=== PATIENT | female | born 1950 | race Caucasian/White ===

== ENCOUNTER 2022-06-23 15:46 | Emergency (ER) | payer MEDICARE, SELFPAY ==
--- NOTE | ~2022-06-23 | CT_ITS ---
EXAMINATION: CT HEAD WITHOUT CONTRAST CT FACE WITHOUT CONTRAST CT CERVICAL SPINE WITHOUT CONTRAST CLINICAL INFORMATION: Headache and neck pain status post fall. COMPARISON: CT head 05/14/2019. MR brain 05/30/2019. TECHNIQUE: Able Seaman images were obtained. CT imaging of the head, face, and cervical spine was performed without contrast. Data was reformatted into multiplanar images at the acquisition workstation. This CT examination was performed using dose optimization techniques as appropriate, including one or more of the following: Automated exposure control, iterative reconstruction, and adjustment of technique factors (mA and/or kVp) according to patient size (this includes techniques or standardized protocols for targeted exams where dose is matched to indication/reason for exam). Fleischner Society criteria for the followup of incidental pulmonary nodules was implemented if appropriate. DLP: 1207 mGy-cm. FINDINGS: Head: There is no acute intracranial hemorrhage or abnormal extra-axial collection. No intracranial mass effect or midline shift. Lateral and third ventricles are proportionate to the subarachnoid spaces. No hydrocephalus. Pulido-white matter differentiation is grossly preserved and there is no evidence of acute territorial infarct. The calvarium and skull base are intact. Mastoid air cells and middle ear cavities are well aerated. Face: There is an acute comminuted fracture of the nasal bones. Zygomatic arches and pterygoid processes are intact. No acute mandibular fracture. 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 Cervical spine: Alignment is normal. Vertebral heights are preserved. No acute cervical spine fracture. No abnormal prevertebral soft tissue swelling. Canal patency is not well assessed on this examination due to inherent limitations of CT without intrathecal contrast. Grossly no evidence of canal compromise. There is pleural-parenchymal scarring at the apices of both lungs. Soft tissues of the neck are unremarkable. CT/CT cervical spine wo IV con IMPRESSION: Head: No acute intracranial hemorrhage. Face: There is an acute comminuted fracture of the nasal bones. No acute facial fracture. Cervical spine: No acute fracture and no posttraumatic spinal subluxation.
--- NOTE | ~2022-06-23 | XR_ITS ---
EXAMINATION: XR KNEE, RIGHT CLINICAL INFORMATION: Right knee pain after trauma COMPARISON: None available. TECHNIQUE: 6 views of the right knee. FINDINGS: Bones and soft tissues are normal. No fracture. A trace joint effusion may be present.. Alignment is anatomic. Joint spaces are well maintained. No abnormal soft tissue calcification. XR/XR knee RT 4V IMPRESSION: No evidence of an acute osseous injury. A trace joint effusion may be present.
--- NOTE | ~2022-06-23 | CT_ITS ---
EXAMINATION: CT HEAD WITHOUT CONTRAST CT FACE WITHOUT CONTRAST CT CERVICAL SPINE WITHOUT CONTRAST CLINICAL INFORMATION: Headache and neck pain status post fall. COMPARISON: CT head 05/14/2019. MR brain 05/30/2019. TECHNIQUE: Marine Engine Mechanic images were obtained. CT imaging of the head, face, and cervical spine was performed without contrast. Data was reformatted into multiplanar images at the acquisition workstation. This CT examination was performed using dose optimization techniques as appropriate, including one or more of the following: Automated exposure control, iterative reconstruction, and adjustment of technique factors (mA and/or kVp) according to patient size (this includes techniques or standardized protocols for targeted exams where dose is matched to indication/reason for exam). Fleischner Society criteria for the followup of incidental pulmonary nodules was implemented if appropriate. DLP: 1207 mGy-cm. FINDINGS: Head: There is no acute intracranial hemorrhage or abnormal extra-axial collection. No intracranial mass effect or midline shift. Lateral and third ventricles are proportionate to the subarachnoid spaces. No hydrocephalus. Pulido-white matter differentiation is grossly preserved and there is no evidence of acute territorial infarct. The calvarium and skull base are intact. Mastoid air cells and middle ear cavities are well aerated. Face: There is an acute comminuted fracture of the nasal bones. Zygomatic arches and pterygoid processes are intact. No acute mandibular fracture. 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 Cervical spine: Alignment is normal. Vertebral heights are preserved. No acute cervical spine fracture. No abnormal prevertebral soft tissue swelling. Canal patency is not well assessed on this examination due to inherent limitations of CT without intrathecal contrast. Grossly no evidence of canal compromise. There is pleural-parenchymal scarring at the apices of both lungs. Soft tissues of the neck are unremarkable. CT/CT facial bones wo IV con IMPRESSION: Head: No acute intracranial hemorrhage. Face: There is an acute comminuted fracture of the nasal bones. No acute facial fracture. Cervical spine: No acute fracture and no posttraumatic spinal subluxation.
--- NOTE | ~2022-06-23 | CT_ITS ---
EXAMINATION: CT HEAD WITHOUT CONTRAST CT FACE WITHOUT CONTRAST CT CERVICAL SPINE WITHOUT CONTRAST CLINICAL INFORMATION: Headache and neck pain status post fall. COMPARISON: CT head 05/14/2019. MR brain 05/30/2019. TECHNIQUE: Aircraft Electronics Technical Officer images were obtained. CT imaging of the head, face, and cervical spine was performed without contrast. Data was reformatted into multiplanar images at the acquisition workstation. This CT examination was performed using dose optimization techniques as appropriate, including one or more of the following: Automated exposure control, iterative reconstruction, and adjustment of technique factors (mA and/or kVp) according to patient size (this includes techniques or standardized protocols for targeted exams where dose is matched to indication/reason for exam). Fleischner Society criteria for the followup of incidental pulmonary nodules was implemented if appropriate. DLP: 1207 mGy-cm. FINDINGS: Head: There is no acute intracranial hemorrhage or abnormal extra-axial collection. No intracranial mass effect or midline shift. Lateral and third ventricles are proportionate to the subarachnoid spaces. No hydrocephalus. Pulido-white matter differentiation is grossly preserved and there is no evidence of acute territorial infarct. The calvarium and skull base are intact. Mastoid air cells and middle ear cavities are well aerated. Face: There is an acute comminuted fracture of the nasal bones. Zygomatic arches and pterygoid processes are intact. No acute mandibular fracture. 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 Cervical spine: Alignment is normal. Vertebral heights are preserved. No acute cervical spine fracture. No abnormal prevertebral soft tissue swelling. Canal patency is not well assessed on this examination due to inherent limitations of CT without intrathecal contrast. Grossly no evidence of canal compromise. There is pleural-parenchymal scarring at the apices of both lungs. Soft tissues of the neck are unremarkable. CT/CT head/brain wo IV con IMPRESSION: Head: No acute intracranial hemorrhage. Face: There is an acute comminuted fracture of the nasal bones. No acute facial fracture. Cervical spine: No acute fracture and no posttraumatic spinal subluxation.
--- NOTE | ~2022-06-23 | XR_ITS ---
EXAMINATION: XR CHEST CLINICAL INFORMATION: Fall with chest trauma COMPARISON: None available. TECHNIQUE: Frontal view of the chest was obtained. FINDINGS: No significant abnormality is noted involving the heart, lungs, mediastinum, bony thorax or soft tissues. No displaced rib fractures are seen. XR/XR chest 1V IMPRESSION: Unremarkable examination.
[2022-06-23 16:09] VITALS: BP 149/63; PULSE 66; RESP 17; TEMP 36.9; O2SAT 98; BMI 21.6
--- NOTE | 2022-06-23 16:09 | ED.FALL ---
HPI - Fall General Chief Complaint: Fall <KANA Donohue - Last Filed: 06/23/22 16:15> Stated Complaint: fell/broke nose? <KANA Donohue - Last Filed: 06/23/22 16:15> Time Seen by Provider: 06/23/22 19:59 <KANA Donohue - Last Filed: 06/23/22 16:15> Source: patient and family <Viki Kam NP - Last Filed: 06/23/22 21:28> Mode of arrival: ambulatory <Viki Kam NP - Last Filed: 06/23/22 21:28> Limitations: no limitations <Viki Kam NP - Last Filed: 06/23/22 21:28> History of Present Illness HPI Narrative: 71-year-old female presents for injury sustained from a mechanical fall. Patient was taking her nightly walk, slipped on some ice last night around 19:00. Landed on her right knee and her face. She did not lose consciousness, and did not seek medical attention last night because she did not think her injuries were too serious. She has bilateral bruising to the eyes, swelling to the nose, and right knee pain. She does not report any prodromal symptoms prior to the fall. <Viki Kam NP - Last Filed: 06/23/22 21:28> MD complaint: fall <Viki Kam NP - Last Filed: 06/23/22 21:28> Onset (ago): day(s) (1) <Viki Kam NP - Last Filed: 06/23/22 21:28> Fall from: standing <Viki Kam NP - Last Filed: 06/23/22 21:28> Fall witnessed: no <Viki Kam NP - Last Filed: 06/23/22 21:28> Place fall occurred: street <Viki Kam NP - Last Filed: 06/23/22 21:28> Loss of consciousness: none <Viki Kam NP - Last Filed: 06/23/22 21:28> Length of LOC: second(s) <Viki Kam NP - Last Filed: 06/23/22 21:28> Prolonged down time: no <Viki Kam NP - Last Filed: 06/23/22 21:28> Symptoms prior to fall: none <Viki Kam NP - Last Filed: 06/23/22 21:28> Context: tripped/slipped <Viki Kam NP - Last Filed: 06/23/22 21:28> Location of injury: head and face <Viki Kam NP - Last Filed: 06/23/22 21:28> Location of injury - extremities: right: knee <Viki Kam NP - Last Filed: 06/23/22 21:28> Severity: moderate <Viki Kam NP - Last Filed: 06/23/22 21:28> Severity scale (1-10): 7 <Viki Kam NP - Last Filed: 06/23/22 21:28> Quality: aching <Viki Kam NP - Last Filed: 06/23/22 21:28> Associated symptoms (after fall): headache <Viki Kam NP - Last Filed: 06/23/22 21:28> Related Data Home Medications: Previous Rx's Medication Instructions Recorded cefuroxime axetil 500 mg tablet 500 mg PO Q12H 5 days #10 tabs 06/23/22 <KANA Donohue - Last Filed: 06/23/22 16:15> Allergies/Adverse Reactions: Allergies Allergy/AdvReac Type Severity Reaction Status Date / Time No Known Allergies Allergy Unverified 12/22/19 19:49 [No Known Allergies*] <KANA Donohue - Last Filed: 06/23/22 16:15> Review of Systems Review of Systems: Constitutional: No Fever, No Chills, mild confusion with short-term memory forgetfulness per baseline. ENT/Mouth: Positive nasal bone pain and swelling. No Ear Pain, No Hoarseness, No sore throat Eyes: Positive bilateral Eye Pain bilateral periorbital ecchymosis, No Swelling, No Redness, No Foreign Body Cardiovascular: No Chest Pain, No SOB Respiratory: No Cough, No Dyspnea Gastrointestinal: No Nausea, No Vomiting, No Diarrhea, No abdominal Pain Genitourinary: No Dysuria, No Hematuria Musculoskeletal: positive right knee pain, No Myalgias, No Joint Swelling Skin: No Skin lacerations, No rash Neuro: No Weakness, No Numbness, No Paresthesias, No Loss of Consciousness, No Dizziness, No Headache <Viki Kam NP - Last Filed: 06/23/22 21:28> Yes all other systems are reviewed and are negative <Viki Kam NP - Last Filed: 06/23/22 21:28> [facility] Past Medical History Attestation statement: The following information was validated with the patient. <Viki Kam NP - Last Filed: 06/23/22 21:28> Source: old records reviewed <Viki Kam NP - Last Filed: 06/23/22 21:28> Social History Social History: Social History Advance Directives: No Advance Directives Information Provided: No <KANA Donohue - Last Filed: 06/23/22 16:15> Physical Exam Vital Signs: Vital Signs: Last Vital Signs Temp 98.4 F 06/23/22 16:09 Pulse 66 06/23/22 16:09 Resp 17 06/23/22 16:09 BP 149/63 H 06/23/22 16:09 Pulse Ox 98 06/23/22 16:09 O2 Del Method 06/23/22 16:09 BMI result Body Mass Index 21.6 <KANA Donohue - Last Filed: 06/23/22 16:15> Vital Signs: Last Vital Signs Temp 98.4 F 06/23/22 16:09 Pulse 66 06/23/22 16:09 Resp 17 06/23/22 16:09 BP 149/63 H 06/23/22 16:09 Pulse Ox 98 06/23/22 16:09 O2 Del Method 06/23/22 16:09 BMI result Body Mass Index 21.6 <Viki Kam NP - Last Filed: 06/23/22 21:28> Appearance: Alert. Oriented X3. No acute distress. Eyes: Pupils equal, round and reactive to light. Bilateral periorbital ecchymosis. ENT: Pharynx normal. Swelling to the bridge of the nose with ecchymosis, disfiguration consistent with fracture. Neck: Normal inspection. Neck supple. No vertebral tenderness or step-offs. Full range of motion. No axial loading tenderness. CVS: Normal heart rate and rhythm. Pulses normal. Respiratory: No respiratory distress. Breath sounds normal. Abdomen: Soft and nontender. Skin: Skin warm and dry. Normal skin color. Normal skin turgor. Extremities: No lower extremity edema. Gait well balance well coordinated. Neuro: No motor deficit. No sensory deficit. Cranial nerves 2-12 intact. <Viki Kam ARCHITECTURAL DRAFTSMAN - Last Filed: 06/23/22 21:28> NIH Stroke Scale Internal: Initial- Upon Arrival <Viki Kam ARCHITECTURAL DRAFTSMAN - Last Filed: 06/23/22 21:28> Level of Consciousness: Alert <Viki Kma ARCHITECTURAL DRAFTSMAN - Last Filed: 06/23/22 21:28> Level of Consciousness Questions: Answers both questions correctly <Viki Kam ARCHITECTURAL DRAFTSMAN - Last Filed: 06/23/22 21:28> Level of Consciousness Commands: Performs both tasks correctly <Viki Kam ARCHITECTURAL DRAFTSMAN - Last Filed: 06/23/22 21:28> Best Gaze: Normal <Viki Kam ARCHITECTURAL DRAFTSMAN - Last Filed: 06/23/22 21:28> Visual: No visual loss <Viki Kam ARCHITECTURAL DRAFTSMAN - Last Filed: 06/23/22 21:28> Facial Palsy: Normal <Viki Kam ARCHITECTURAL DRAFTSMAN - Last Filed: 06/23/22 21:28> Motor Arm (Right): No drift <Viki Kam ARCHITECTURAL DRAFTSMAN - Last Filed: 06/23/22 21:28> Motor Arm (Left): No drift <Candmarlin Eddy, ARCHITECTURAL DRAFTSMAN - Last Filed: 06/23/22 21:28> Motor Leg (Right): No drift <Viki Eddy, ARCHITECTURAL DRAFTSMAN - Last Filed: 06/23/22 21:28> Motor Leg (Left): No drift <Viki Kam ARCHITECTURAL DRAFTSMAN - Last Filed: 06/23/22 21:28> Limb Ataxia: Absent <Viki Kam ARCHITECTURAL DRAFTSMAN - Last Filed: 06/23/22 21:28> Sensory: Normal <Viki Kam ARCHITECTURAL DRAFTSMAN - Last Filed: 06/23/22 21:28> Best Language: No aphasia <Viki Kam NP - Last Filed: 06/23/22 21:28> Dysarthia: Normal <Viki Kam NP - Last Filed: 06/23/22 21:28> Extinction and Inattention: No abnormality <Viki Kam NP - Last Filed: 06/23/22 21:28> Score: 0 <Viki Kam NP - Last Filed: 06/23/22 21:28> Course Course Course Narrative: This is an RME: Additional HPI, ROS, PE not included below will be deferred to primary provider. 71-year-old female presents status post fall last night after she was taking a walk patient reports she fell, unsure how, she hit her right knee in her face. Reporting nose pain, right knee pain. No loss of consciousness, not on blood thinners. Was able to get up from the ground by herself. Denies headache, chest pain, shortness of breath, nausea, vomiting, vision changes, dizziness, weakness. No preceding symptoms to fall per patient, however, poor historian GCS 15. NIH stroke scale 0. Physical exam with bilateral periorbital ecchymosis , swelling to nose and some ecchymosis overlying nose slight deformity. Will order CT scan of head, facial bones, cervical spine. Also order chest x-ray and x-ray of right knee. Basic labs will be ordered. <KANA Donohue - Last Filed: 06/23/22 16:15> This is an RME: Additional HPI, ROS, PE not included below will be deferred to primary provider. 71-year-old female presents status post fall last night after she was taking a walk patient reports she fell, unsure how, she hit her right knee in her face. Reporting nose pain, right knee pain. No loss of consciousness, not on blood thinners. Was able to get up from the ground by herself. Denies headache, chest pain, shortness of breath, nausea, vomiting, vision changes, dizziness, weakness. No preceding symptoms to fall per patient, however, poor historian GCS 15. NIH stroke scale 0. Physical exam with bilateral periorbital ecchymosis , swelling to nose and some ecchymosis overlying nose slight deformity. Will order CT scan of head, facial bones, cervical spine. Also order chest x-ray and x-ray of right knee. Basic labs will be ordered. 20:00 71-year-old female presents for injury sustained from a fall that occurred around 19:00 last night. Patient stated that she slipped on some ice, landed on her right knee and hit her face onto the pavement. Provider in triage ordered lab values, EKG, CT scan of head facial bones cervical spine, x-rays of the knee and chest. CT scan of head cervical spine negative for acute findings, CT scan of facial bones indicates bilateral nasal bone fractures. Knee x-ray indicates effusion, too small to be drained, chest x-ray is negative for findings requiring emergent intervention. Physical exam indicates bilateral periorbital ecchymosis with swelling to the bridge of the nose with deformity, consistent with CT scan findings of nasal bone fractures. Patient is ambulatory, even steady gait, GCS 15, NIH stroke scale 0. Full range of motion to all extremities. Strength 5/5. Lab values indicate an elevated troponin, will repeat 2nd. EKG is normal sinus, urinalysis shows a small amount of leukocyte esterase, and white blood cell count. Patient's daughter is at bedside, who states that patient has short-term memory problems per baseline. Daughter does not report any significant changes in this patient's behavior or mental status. 21:05 repeat troponin 17.2, low likelihood of ACS at this time. Will treat empirically for UTI with cefuroxime for 5 days. Patient and patient's family does understand that patient needs close follow-up with primary care physician for post concussive protocol. Patient verbalized understanding of discharge instructions. Verbalized understandings of signs and symptoms indicating need for emergent intervention. <Viki Kam NP - Last Filed: 06/23/22 21:28> Medications Administered Generic Name Dose Route Start Last Admin Trade Name Freq PRN Reason Stop Dose Admin Sodium Chloride 1,000 mls @ 999 mls/hr 06/23/22 20:15 06/23/22 20:23 Ns IVCONT 06/23/22 21:15 999 mls/hr .Q1H1M NEKCHI Administration <KANA Donohue - Last Filed: 06/23/22 16:15> Medications Administered Generic Name Dose Route Start Last Admin Trade Name Freq PRN Reason Stop Dose Admin Sodium Chloride 1,000 mls @ 999 mls/hr 06/23/22 20:15 06/23/22 20:23 Ns IVCONT 06/23/22 21:15 999 mls/hr .Q1H1M NKECHI Administration <Viki Kam NP - Last Filed: 06/23/22 21:28> Medical Decision Making Differential Diagnosis Differential Diagnoses: The differential diagnosis associated with the presentation includes <Viki Kam NP - Last Filed: 06/23/22 21:28> CVA, subdural, cervical spine fracture, facial bone fracture, effusion, ACS, dislocation, tendon injury <Viki Kam NP - Last Filed: 06/23/22 21:28> Admission/Observation Consideration of admission/observation: Escalation of care including admission/observation considered <Viki Kam NP - Last Filed: 06/23/22 21:28> If any abnormal lab values, or acute findings and CT scan or x-rays patient will be considered for admission <Viki Kam NP - Last Filed: 06/23/22 21:28> Lab Data MDM Lab Attestation statement: I reviewed the patient's lab results. <Viki Kam NP - Last Filed: 06/23/22 21:28> Result Diagrams: 06/23/22 17:10 06/23/22 17:10 <KANA Donohue - Last Filed: 06/23/22 16:15> Labs: Lab Results 06/23/22 06/23/22 06/23/22 Range/Units 17:07 17:10 17:10 WBC 6.6 (4.8-10.8) X10*3/uL RBC 3.88 L (4.20-5.50) X10*6/uL Hgb 11.8 L (12.0-16.0) g/dl Hct 36.0 L (37.0-47.0) % MCV 92.8 (80.0-98.0) fL MCH 30.4 (27.0-33.0) pg MCHC 32.8 (31.0-35.0) g/dl RDW 12.6 (11.0-16.0) % Plt Count 209 (160-400) X10*3/uL MPV 9.9 (9.4-12.3) fL Immature Gran % (Auto) 0.5 H (0.0-0.4) % Neut % (Auto) 53.1 (45-73) % Lymph % (Auto) 35.8 (20-40) % [place] % (Auto) 8.2 (2-11) % Eos % (Auto) 2.1 (0-4) % Baso % (Auto) 0.3 (0-2) % Lymph # (Auto) 2.4 (1.2-4.9) X10*3/uL [place] # (Auto) 0.5 (0.1-1.2) X10*3/uL Eos # (Auto) 0.1 (0.0-0.4) X10*3/uL Baso # (Auto) 0.0 (0.0-0.2) X10*3/uL Abs Immat Gran (auto) 0.03 (0.00-0.03) X10*3/uL Absolute Neuts (auto) 3.5 (2.0-8.3) x10*3/uL Absolute Nucleated RBC 0.000 (0.0-0.012) X10*3/uL Nucleated RBC % (auto) 0.0 (0.0-0.2) /100WBC PT (10.0-13.1) SEC INR (0.9-1.1) Sodium 142 (135-145) mmol/L Potassium 4.3 (3.3-5.1) mmol/L Chloride 109 H (96-108) mmol/L Carbon Dioxide 24 (22-29) mmol/L Anion Gap 13 (12-20) BUN 19 H (9-16) mg/dL Creatinine 0.67 (0.5-1.4) mg/dL Estim Creat Clear Calc 70.3 Estimated GFR > 60 Random Glucose 101 (60-115) mg/dL Calcium 9.6 (8.4-10.2) mg/dL Magnesium 2.4 (1.6-2.6) mg/dL Total Bilirubin 1.0 (0.0-1.0) mg/dL AST 34 H (5-31) U/L ALT 35 H (0-31) U/L Alkaline Phosphatase 76 (39-117) U/L Troponin I High Sens (<3.5-17.0) ng/L Total Protein 6.1 L (6.5-8.0) g/dL Albumin 3.9 (3.5-5.0) g/dL Urine Color Yellow Urine Appearance Cloudy Urine pH 6.5 (5.0-9.0) Ur Specific [place] 1.025 (1.005-1.025) Urine Protein Negative (Neg-Trace) mg/dL Urine Glucose (UA) Negative (Negative) mg/dL Urine Ketones Negative (Negative) mg/dL Urine Blood Negative (Negative) Urine Nitrite Negative (Negative) Ur Leukocyte Esterase Small (1+) H (Negative) Urine RBC 0-2 (0-2) /HPF Urine WBC 21-50 H (0-5) /HPF Ur Squamous Epith Cells 0-2 (0-2) /HPF Urine Bacteria None Seen (None Seen) Hyaline Casts 3-5 (0-2) /LPF 06/23/22 06/23/22 06/23/22 Range/Units 17:10 17:10 20:16 WBC (4.8-10.8) X10*3/uL RBC (4.20-5.50) X10*6/uL Hgb (12.0-16.0) g/dl Hct (37.0-47.0) % MCV (80.0-98.0) fL MCH (27.0-33.0) pg MCHC (31.0-35.0) g/dl RDW (11.0-16.0) % Plt Count (160-400) X10*3/uL MPV (9.4-12.3) fL Immature Gran % (Auto) (0.0-0.4) % Neut % (Auto) (45-73) % Lymph % (Auto) (20-40) % [place] % (Auto) (2-11) % Eos % (Auto) (0-4) % Baso % (Auto) (0-2) % Lymph # (Auto) (1.2-4.9) X10*3/uL [place] # (Auto) (0.1-1.2) X10*3/uL Eos # (Auto) (0.0-0.4) X10*3/uL Baso # (Auto) (0.0-0.2) X10*3/uL Abs Immat Gran (auto) (0.00-0.03) X10*3/uL Absolute Neuts (auto) (2.0-8.3) x10*3/uL Absolute Nucleated RBC (0.0-0.012) X10*3/uL Nucleated RBC % (auto) (0.0-0.2) /100WBC PT 10.7 (10.0-13.1) SEC INR 0.9 (0.9-1.1) Sodium (135-145) mmol/L Potassium (3.3-5.1) mmol/L Chloride (96-108) mmol/L Carbon Dioxide (22-29) mmol/L Anion Gap (12-20) BUN (9-16) mg/dL Creatinine (0.5-1.4) mg/dL Estim Creat Clear Calc Estimated GFR Random Glucose (60-115) mg/dL Calcium (8.4-10.2) mg/dL Magnesium (1.6-2.6) mg/dL Total Bilirubin (0.0-1.0) mg/dL AST (5-31) U/L ALT (0-31) U/L Alkaline Phosphatase (39-117) U/L Troponin I High Sens 18.4 H 17.2 H (<3.5-17.0) ng/L Total Protein (6.5-8.0) g/dL Albumin (3.5-5.0) g/dL Urine Color Urine Appearance Urine pH (5.0-9.0) Ur Specific [place] (1.005-1.025) Urine Protein (Neg-Trace) mg/dL Urine Glucose (UA) (Negative) mg/dL Urine Ketones (Negative) mg/dL Urine Blood (Negative) Urine Nitrite (Negative) Ur Leukocyte Esterase (Negative) Urine RBC (0-2) /HPF Urine WBC (0-5) /HPF Ur Squamous Epith Cells (0-2) /HPF Urine Bacteria (None Seen) Hyaline Casts (0-2) /LPF <KANA Donohue - Last Filed: 06/23/22 16:15> Lab Results 06/23/22 06/23/22 06/23/22 Range/Units 17:07 17:10 17:10 WBC 6.6 (4.8-10.8) X10*3/uL RBC 3.88 L (4.20-5.50) X10*6/uL Hgb 11.8 L (12.0-16.0) g/dl Hct 36.0 L (37.0-47.0) % MCV 92.8 (80.0-98.0) fL MCH 30.4 (27.0-33.0) pg MCHC 32.8 (31.0-35.0) g/dl RDW 12.6 (11.0-16.0) % Plt Count 209 (160-400) X10*3/uL MPV 9.9 (9.4-12.3) fL Immature Gran % (Auto) 0.5 H (0.0-0.4) % Neut % (Auto) 53.1 (45-73) % Lymph % (Auto) 35.8 (20-40) % [place] % (Auto) 8.2 (2-11) % Eos % (Auto) 2.1 (0-4) % Baso % (Auto) 0.3 (0-2) % Lymph # (Auto) 2.4 (1.2-4.9) X10*3/uL [place] # (Auto) 0.5 (0.1-1.2) X10*3/uL Eos # (Auto) 0.1 (0.0-0.4) X10*3/uL Baso # (Auto) 0.0 (0.0-0.2) X10*3/uL Abs Immat Gran (auto) 0.03 (0.00-0.03) X10*3/uL Absolute Neuts (auto) 3.5 (2.0-8.3) x10*3/uL Absolute Nucleated RBC 0.000 (0.0-0.012) X10*3/uL Nucleated RBC % (auto) 0.0 (0.0-0.2) /100WBC PT (10.0-13.1) SEC INR (0.9-1.1) Sodium 142 (135-145) mmol/L Potassium 4.3 (3.3-5.1) mmol/L Chloride 109 H (96-108) mmol/L Carbon Dioxide 24 (22-29) mmol/L Anion Gap 13 (12-20) BUN 19 H (9-16) mg/dL Creatinine 0.67 (0.5-1.4) mg/dL Estim Creat Clear Calc 70.3 Estimated GFR > 60 Random Glucose 101 (60-115) mg/dL Calcium 9.6 (8.4-10.2) mg/dL Magnesium 2.4 (1.6-2.6) mg/dL Total Bilirubin 1.0 (0.0-1.0) mg/dL AST 34 H (5-31) U/L ALT 35 H (0-31) U/L Alkaline Phosphatase 76 (39-117) U/L Troponin I High Sens (<3.5-17.0) ng/L Total Protein 6.1 L (6.5-8.0) g/dL Albumin 3.9 (3.5-5.0) g/dL Urine Color Yellow Urine Appearance Cloudy Urine pH 6.5 (5.0-9.0) Ur Specific [place] 1.025 (1.005-1.025) Urine Protein Negative (Neg-Trace) mg/dL Urine Glucose (UA) Negative (Negative) mg/dL Urine Ketones Negative (Negative) mg/dL Urine Blood Negative (Negative) Urine Nitrite Negative (Negative) Ur Leukocyte Esterase Small (1+) H (Negative) Urine RBC 0-2 (0-2) /HPF Urine WBC 21-50 H (0-5) /HPF Ur Squamous Epith Cells 0-2 (0-2) /HPF Urine Bacteria None Seen (None Seen) Hyaline Casts 3-5 (0-2) /LPF 06/23/22 06/23/22 06/23/22 Range/Units 17:10 17:10 20:16 WBC (4.8-10.8) X10*3/uL RBC (4.20-5.50) X10*6/uL Hgb (12.0-16.0) g/dl Hct (37.0-47.0) % MCV (80.0-98.0) fL MCH (27.0-33.0) pg MCHC (31.0-35.0) g/dl RDW (11.0-16.0) % Plt Count (160-400) X10*3/uL MPV (9.4-12.3) fL Immature Gran % (Auto) (0.0-0.4) % Neut % (Auto) (45-73) % Lymph % (Auto) (20-40) % [place] % (Auto) (2-11) % Eos % (Auto) (0-4) % Baso % (Auto) (0-2) % Lymph # (Auto) (1.2-4.9) X10*3/uL [place] # (Auto) (0.1-1.2) X10*3/uL Eos # (Auto) (0.0-0.4) X10*3/uL Baso # (Auto) (0.0-0.2) X10*3/uL Abs Immat Gran (auto) (0.00-0.03) X10*3/uL Absolute Neuts (auto) (2.0-8.3) x10*3/uL Absolute Nucleated RBC (0.0-0.012) X10*3/uL Nucleated RBC % (auto) (0.0-0.2) /100WBC PT 10.7 (10.0-13.1) SEC INR 0.9 (0.9-1.1) Sodium (135-145) mmol/L Potassium (3.3-5.1) mmol/L Chloride (96-108) mmol/L Carbon Dioxide (22-29) mmol/L Anion Gap (12-20) BUN (9-16) mg/dL Creatinine (0.5-1.4) mg/dL Estim Creat Clear Calc Estimated GFR Random Glucose (60-115) mg/dL Calcium (8.4-10.2) mg/dL Magnesium (1.6-2.6) mg/dL Total Bilirubin (0.0-1.0) mg/dL AST (5-31) U/L ALT (0-31) U/L Alkaline Phosphatase (39-117) U/L Troponin I High Sens 18.4 H 17.2 H (<3.5-17.0) ng/L Total Protein (6.5-8.0) g/dL Albumin (3.5-5.0) g/dL Urine Color Urine Appearance Urine pH (5.0-9.0) Ur Specific [place] (1.005-1.025) Urine Protein (Neg-Trace) mg/dL Urine Glucose (UA) (Negative) mg/dL Urine Ketones (Negative) mg/dL Urine Blood (Negative) Urine Nitrite (Negative) Ur Leukocyte Esterase (Negative) Urine RBC (0-2) /HPF Urine WBC (0-5) /HPF Ur Squamous Epith Cells (0-2) /HPF Urine Bacteria (None Seen) Hyaline Casts (0-2) /LPF <Viki Kam NP - Last Filed: 06/23/22 21:28> Independent Interpretation I performed an independent interpretation of an: EKG, Plain X-Ray and CT Scan <Viki Kam NP - Last Filed: 06/23/22 21:28> Interpretation: Normal sinus rhythm Normal ECG No previous ECGs available Vent. rate 67 BPM NM interval 154 ms QRS duration 82 ms QT/QTc 380/401 ms P-R-T axes 71 37 60 23-JUN-2022 16:59:27 <Viki Kam NP - Last Filed: 06/23/22 21:28> Radiology Impression Discussion of test interpretation with radiology: I have reviewed the radiologist's reading. <Viki Kam NP - Last Filed: 06/23/22 21:28> Radiologist Impression: EXAMINATION: XR KNEE, RIGHT? CLINICAL INFORMATION: Right knee pain after trauma? COMPARISON: None available.? TECHNIQUE: 6 views of the right knee. FINDINGS: Bones and soft tissues are normal. No fracture. A trace joint effusion may be present.. Alignment is anatomic. Joint spaces are well maintained. No abnormal soft tissue calcification.? XR/XR knee RT 4V IMPRESSION: No evidence of an acute osseous injury. A trace joint effusion may be present. ? EXAMINATION: XR CHEST CLINICAL INFORMATION: Fall with chest trauma COMPARISON: None available. TECHNIQUE: Frontal view of the chest was obtained. FINDINGS: No significant abnormality is noted involving the heart, lungs, mediastinum, bony thorax or soft tissues. No displaced rib fractures are seen. XR/XR chest 1V IMPRESSION: Unremarkable examination. ? FINDINGS: Head: There is no acute intracranial hemorrhage or abnormal extra-axial collection. No intracranial mass effect or midline shift. Lateral and third ventricles are proportionate to the subarachnoid spaces. No hydrocephalus. Pulido-white matter differentiation is grossly preserved and there is no evidence of acute territorial infarct. The calvarium and skull base are intact. Mastoid air cells and middle ear cavities are well aerated. Face: There is an acute comminuted fracture of the nasal bones. Zygomatic arches and pterygoid processes are intact. No acute mandibular fracture. 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 Cervical spine: Alignment is normal. Vertebral heights are preserved. No acute cervical spine fracture. No abnormal prevertebral soft tissue swelling. Canal patency is not well assessed on this examination due to inherent limitations of CT without intrathecal contrast. Grossly no evidence of canal compromise. There is pleural-parenchymal scarring at the apices of both lungs. Soft tissues of the neck are unremarkable. CT/CT head/brain wo IV con IMPRESSION: Head: No acute intracranial hemorrhage. ? Face: There is an acute comminuted fracture of the nasal bones. No acute facial fracture. ? Cervical spine: No acute fracture and no posttraumatic spinal subluxation. <Viki Kam NP - Last Filed: 06/23/22 21:28> Independent Historian Clinical information obtained from an independent historian. History obtained from or confirmed by: Other (Family, daughter) <DEREK Carson Last Filed: 06/23/22 21:28> External Record Review External record reviewed: Outpatient record and Prior outpatient labs <Viki Kam NP - Last Filed: 06/23/22 21:28> Prescription Management I considered prescription management with: Antibiotic <DEREK Carson Last Filed: 06/23/22 21:28> Chronic Conditions Patient?s care impacted by: Hypertension <DEREK Carson Last Filed: 06/23/22 21:28> Scores Heart Score History: -0- slightly suspicious <DEREK Carson Last Filed: 06/23/22 21:28> ECG: -0- normal <DEREK Carson Last Filed: 06/23/22 21:28> Age: -2- > or = 65 <DEREK Carson Last Filed: 06/23/22 21:28> Risk factory: -1- 1 or 2 risk factors <Viki Kam NP - Last Filed: 06/23/22 21:28> Troponin: -1- >1 - <3x normal limit <Viki Kam NP - Last Filed: 06/23/22 21:28> Score: 4 <Viki Kam NP - Last Filed: 06/23/22 21:28> Risk: 16.6% <Viki Kam NP - Last Filed: 06/23/22 21:28> Discharge Plan Discharge Clinical Impression: Concussion without loss of consciousness, Fracture of nasal bones, closed, Acute UTI, Traumatic ecchymosis of left orbit, Traumatic ecchymosis of right orbit, Effusion of knee joint right, Elevated troponin level not due myocardial infarction <KANA Donohue - Last Filed: 06/23/22 16:15> Patient Disposition: Home, Self-Care <KANA Donohue - Last Filed: 06/23/22 16:15> Additional Instructions: You were evaluated for injuries sustained from a fall. CT scan of head and cervical spine are negative for acute findings. CT scan of facial bones indicates bilateral nasal bone fractures. Chest x-ray is negative for acute findings. X-ray of the right knee indicates a small joint effusion, this is a small pocket of fluid in between the joint space. This pocket of fluid is too small to be drained at this time. Please use Pop wrap to help compress the swelling. Rest ice and elevate the extremity to help reduce pain and swelling. Your lab values indicated an elevated troponin, which is a cardiac enzyme. Your EKG was normal sinus rhythm. Her cardiac enzymes are elevated without indication of myocardial infarction. Please follow-up with her primary care physician for follow-up. Urinalysis indicates suggestion of UTI. We are treating you with cefuroxime 500 mg every 12 hours for the next 5 days. Drink plenty of fluids. Your injuries are consistent with a concussion. Please follow-up post concussive protocol. Follow up with her primary care physician closely for concussion follow-up. Alternate Tylenol 650 mg every 6 hours and Motrin 600 mg every 6 hours as needed for pain and fever management. Consider taking these medications 3 hours apart so you have pain and fever management every 3 hours. Write down what time you take these medications to prevent accidental overdose. Motrin is the same medication as Advil and ibuprofen. Tylenol is the same medication as acetaminophen. Thank you for choosing this emergency department for evaluation. Please follow-up with primary care physician as needed. Return to the emergency department for any new, concerning, or worsening symptoms. <KANA Donohue - Last Filed: 06/23/22 16:15> Prescriptions: New cefuroxime axetil 500 mg tablet 500 mg PO Q12H 5 Days Qty: 10 0RF <KANA Donohue - Last Filed: 06/23/22 16:15>
--- NOTE | 2022-06-23 16:10 | ECG_ITS ---
Test Reason : FALL Blood Pressure : / mmHG Vent. Rate : 067 BPM Atrial Rate : 067 BPM P-R Int : 154 ms QRS Dur : 082 ms QT Int : 380 ms P-R-T Axes : 071 037 060 degrees QTc Int : 401 ms Normal sinus rhythm Normal ECG No previous ECGs available Referred By: Milo Huitron Electronically Signed By:ARGELIA REYES MD
[2022-06-23 17:17] LABS: MANUAL DIFF FLAG NO
[2022-06-23 17:19] LABS: Basophils Percent Auto 0.3 % (0-2); Eosinophils Absolute Auto 0.1 X10*3/uL (0.0-0.4); Eosinophils Percent Auto 2.1 % (0-4); Hemoglobin 11.8 g/dl (12.0-16.0); Imm Gran Abs Auto 0.03 X10*3/uL (0.00-0.03); Imm Gran Pct Auto 0.5 % (0.0-0.4); Lymphocytes Absolute Auto 2.4 X10*3/uL (1.2-4.9); Lymphocytes Percent Auto 35.8 % (20-40); Mean Corpuscular HGB Conc 32.8 g/dl (31.0-35.0); Mean Corpuscular Hemoglobin 30.4 pg (27.0-33.0); Mean Corpuscular Volume 92.8 fL (80.0-98.0); Mean Platelet Volume 9.9 fL (9.4-12.3); Monocytes Absolute Auto 0.5 X10*3/uL (0.1-1.2); Monocytes Percent Auto 8.2 % (2-11); Neutrophils Absolute Auto 3.5 x10*3/uL (2.0-8.3); Neutrophils Percent Auto 53.1 % (45-73); Platelet Count 209 X10*3/uL (160-400); Red Blood Count 3.88 X10*6/uL (4.20-5.50); Red Cell Distribution Width 12.6 % (11.0-16.0); White Blood Count 6.6 X10*3/uL (4.8-10.8)
[2022-06-23 17:27] LABS: INTERNATIONAL NORM RATIO 0.9 (0.9-1.1); Prothrombin Time 10.7 SEC (10.0-13.1)
[2022-06-23 17:30] LABS: Appearance Urine Cloudy; Color Urine Yellow; Glucose Urine UA Negative (Negative); Leukocyte Esterase Urine Small (1+) (Negative); Nitrite Urine Negative (Negative); PH 6.5 (5.0-9.0); Specific Gravity - Urine 1.025 (1.005-1.025); UMIC TRIGGER UACC YES; Urine Blood Negative (Negative); Urine Ketones Negative (Negative); Urine Protein Negative (Neg-Trace)
[2022-06-23 17:33] LABS: Bacteria Urine None Seen (None Seen); RBC Urine 0-2 /HPF (0-2); Squamous Epithelial Cell Urine 0-2 /HPF (0-2); UACC Culture Trigger YES; WBC Urine 21-50 /HPF (0-5)
[2022-06-23 17:41] LABS: Alanine Aminotransferase 35 U/L (0-31); Albumin Level 3.9 g/dL (3.5-5.0); Alkaline Phosphatase 76 U/L (39-117); Anion Gap 13 (12-20); Aspartate Amino Transferase 34 U/L (5-31); Blood Urea Nitrogen 19 mg/dL (9-16); Calcium 9.6 mg/dL (8.4-10.2); Carbon Dioxide 24 mmol/L (22-29); Chloride 109 mmol/L (96-108); Creatinine Clr Calc Pharmacy 70.3; Estimated Glomerular Filt Rate > 60; Glucose Random 101 mg/dL (60-115); Magnesium 2.4 mg/dL (1.6-2.6); Potassium 4.3 mmol/L (3.3-5.1); Sodium 142 mmol/L (135-145); Total Protein 6.1 g/dL (6.5-8.0)
[2022-06-23 17:48] LABS: Troponin-I High Sensitivity 18.4 ng/L (<3.5-17.0)
[2022-06-23] MEDS: 0.9 % Sodium Chloride 1,000 ML 999 ML IVCONT (20:23)
[2022-06-23 20:42] LABS: Troponin-I High Sensitivity 17.2 ng/L (<3.5-17.0)
[2022-06-23 21:10] VITALS: BP 153/96; PULSE 77; RESP 16; O2SAT 100
== END 2022-06-23 21:36 | disposition home or self-care (01) ==
PROVIDERS: Nurse Practitioner Family; Physician Assistant; Emergency Provider Emergency Medicine; PCP Physician Assistant
DX: S06.0X0A Concussion without loss of consciousness, initial encounter (principal); S02.2XXA Fracture of nasal bones, initial encounter for closed fracture; S05.12XA Contusion of eyeball and orbital tissues, left eye, initial encounter; S05.11XA Contusion of eyeball and orbital tissues, right eye, initial encounter; M25.461 Effusion, right knee; W00.0XXA Fall on same level due to ice and snow, initial encounter; Y93.9 Activity, unspecified; Y92.9 Unspecified place or not applicable; N39.0 Urinary tract infection, site not specified; R77.8 Other specified abnormalities of plasma proteins
CPT/HCPCS: 36415; 70450; 70486; 71045; 72125; 73564; 80053; 81001; 83735; 84484; 85025; 85610; 87086; 93005; 96360; 99284

== ENCOUNTER 2023-06-24 12:26 | Outpatient (REF) | payer MEDICARE, SELFPAY ==
[2023-06-24 12:39] LABS: MANUAL DIFF FLAG NO
[2023-06-24 13:07] LABS: Basophils Percent Auto 0.6 % (0-2); Eosinophils Absolute Auto 0.2 X10*3/uL (0.0-0.4); Eosinophils Percent Auto 3.2 % (0-4); Hematocrit 36.2 % (37.0-47.0); Hemoglobin 12.2 g/dl (12.0-16.0); Imm Gran Abs Auto 0.02 X10*3/uL (0.00-0.03); Imm Gran Pct Auto 0.4 % (0.0-0.4); Lymphocytes Absolute Auto 1.6 X10*3/uL (1.2-4.9); Lymphocytes Percent Auto 30.5 % (20-40); Mean Corpuscular HGB Conc 33.7 g/dl (31.0-35.0); Mean Corpuscular Hemoglobin 31.1 pg (27.0-33.0); Mean Corpuscular Volume 92.3 fL (80.0-98.0); Mean Platelet Volume 9.9 fL (9.4-12.3); Monocytes Absolute Auto 0.4 X10*3/uL (0.1-1.2); Monocytes Percent Auto 7.1 % (2-11); Neutrophils Absolute Auto 3.1 x10*3/uL (2.0-8.3); Neutrophils Percent Auto 58.2 % (45-73); Platelet Count 231 X10*3/uL (160-400); Red Blood Count 3.92 X10*6/uL (4.20-5.50); Red Cell Distribution Width 11.9 % (11.0-16.0); White Blood Count 5.4 X10*3/uL (4.8-10.8)
[2023-06-24 13:46] LABS: Alanine Aminotransferase 21 U/L (0-31); Albumin Level 4.1 g/dL (3.5-5.0); Alkaline Phosphatase 89 U/L (39-117); Anion Gap 10 (12-20); Aspartate Amino Transferase 24 U/L (5-31); Bilirubin Total 0.3 mg/dL (0.0-1.0); Blood Urea Nitrogen 14 mg/dL (9-16); Carbon Dioxide 26 mmol/L (22-29); Chloride 108 mmol/L (96-108); Estimated Glomerular Filt Rate > 60; Glucose Random 94 mg/dL (60-115); Potassium 4.1 mmol/L (3.3-5.1); Sodium 140 mmol/L (135-145); Total Protein 6.7 g/dL (6.5-8.0)
[2023-06-24 13:56] LABS: T4 Thyroxine 6.2 ug/dL (4.5-12.0); Thyroid Stimulating Hormone 1.67 uIU/mL (0.32-4.0)
[2023-06-24 14:06] LABS: Folate 8.4 ng/mL (> or = 4.0); Vitamin B12 533 pg/mL (200-900)
== END 2023-06-24 12:27 | disposition home or self-care (01) ==
LOC: HO.LAB 12:26
PROVIDERS: PCP Internal Medicine; Visit Provider Registered Nurse
DX: G31.84 Mild cognitive impairment of uncertain or unknown etiology (principal)
CPT/HCPCS: 36415; 80053; 82607; 82746; 84436; 84443; 85025

== ENCOUNTER 2023-11-06 13:26 | Outpatient (REF) | payer MEDICARE, SELFPAY ==
--- NOTE | ~2023-11-06 | CT_ITS ---
CT head/brain wo IV con CLINICAL INFORMATION: Reason for Exam ALZHEIMERS CT images COMPARISON: Prior CT of June 2022 TECHNIQUE: Department standard protocol. This CT examination was performed using dose optimization techniques as appropriate, variously including the following: *Automated exposure control *Adjustment of mA and/or kV according to patient size (this includes techniques or standardized protocols for targeted exams where dose is matched to indication/reason for exam; i.e. extremities or head) *Use of iterative reconstruction technique DLP: 802 mGy-cm FINDINGS: CEREBRAL HEMISPHERES: There is no evidence of intra-axial or extra-axial mass, hemorrhage or acute infarct. BRAIN PARENCHYMA: Deep white matter and paraventricular hypoattenuation, nonspecific; most likely changes secondary to chronic ischemia due to microvascular angiopathy. SUBDURAL SPACE: No bleed. BASAL GANGLIA AND PINEAL GLAND: Unremarkable VENTRICLES: The ventricles are prominent bilaterally, especially the temporal horns left more than right, this is indicative of underlying loss of gyral volume although nonspecific has been described in association with Alzheimer disease which can be more better evaluated and diagnosed with MRI or SPECT-CT which can better assess for mesial temporal lobe and hippocampal atrophy... CEREBELLUM AND BRAINSTEM: No space-occupying mass, hemorrhage or acute infarct. CEREBELLOPONTINE ANGLES: No lesion found. ORBITS: No intraorbital mass. VESSELS: Unremarkable SKULL BASE: Unremarkable INCLUDED SINUSES AT SKULL BASE: Clear SKULL AND SKIN: No fracture or bone lesion found. CT/CT head/brain wo IV con IMPRESSION: 1. Deep white matter and periventricular hypoattenuation, nonspecific; most likely sequela of chronic microvascular angiopathy ischemia. 2. The ventricles are prominent bilaterally, especially the temporal horns of the lateral ventricles, left more than right, this is indicative of underlying loss of gyral volume, although nonspecific has been described in association with Alzheimer disease which can be evaluated and diagnosed more specifically with MRI or SPECT-CT, both can better assess for mesial temporal lobe and hippocampal atrophy more characteristic of Alzheimer's disease.
== END 2023-11-06 13:27 | disposition home or self-care (01) ==
LOC: HO.CT 13:26
PROVIDERS: PCP Internal Medicine; Visit Provider Registered Nurse
DX: G30.9 Alzheimer's disease, unspecified (principal)
CPT/HCPCS: 70450

== ENCOUNTER 2024-12-15 15:38 | Outpatient (AMB) | payer MEDICARE, SELFPAY ==
--- OUTSIDE RECORDS SUMMARY | 2021-05-27 15:45 | XMS_ITS | Encounter Summary ---
Author Organization [facility] Address [address] [place] [address] [place] [phone] Phone Care Team Providers Care Featheredge Machine Operator Name Role Phone Yumiko Navarro MD Primary Care Provid er Encounter Details Date Type Department Care Team (Late st Contact Info) Description 05/27/2021 2:45 PM EST Hospital Encounter [facility] [address] [place] [phone] Kaleigh Aguilar FNP [address] [place] [phone] [email or web address] Social History Tobacco Use Types Packs/Day Years [...] originally createdby Robbin España. us Kaleighryan Varelaes VETERINARY LABORATORY TECHNICIAN IMG XR LOWER EXTREMITY Zena l Result documented in this encounter Visit Diagnoses Not on filedocumented in this encounter Care Teams Featheredge Machine Operator Relationship Specialty Start Date End Date Yumiko Navarro MD [address] [phone] PCP - General Internal Medicine 05/27/21 documented as of this encounter Additional Source Comments The information contained in this document represents components of the legal health record. It is not the complete legal health record[facility]
--- NOTE | 2024-12-15 15:56 | MHC.OFFVIS ---
Intake Visit Reasons: discuss med change and hospital visit Allergies No Known Allergies (No Known Allergies*) Allergy (Unverified 12/15/24 16:01) Medication List - Last Reconciled 12/15/24 by Luz Wells CNP carbamazepine 200 mg PO BID cefuroxime axetil 500 mg PO Q12H 5 days memantine 5 mg PO BID quetiapine 25 - 50 mg PO BEDTIME sertraline 25 mg PO DAILY HPI Comments Details: 74-year-old woman with history of left V1 distribution trigeminal neuralgia (04/2019, 10/2022, 06/2023) treated with carbamazepine, insomnia, MARNI (unable to tolerate CPAP and recommended CBT by sleep medicine), and dementia (with neuropsych testing by Dr. Diaz in 07/2023 and 02/2024 showing mild to moderate dementia). Her daughter was here to review medications and discuss changes made to medications following [place] [facility] [place] [facility] [place]. According to reports, she had an episode of dizziness while sitting in chair that worsened when she stood. EMS was called and when being repositioned by EMS, she passed out for 30-60 seconds. She vomited when she came to. She had another episode at the hospital where she passed out while using the commode. Orthostatic vitals were positive on admission and she was given IV fluids. EKG NSR. Echocardiogram showed normal EF, LV size and systolic function, no regional wall motion abnormalities, mild septal thickening. She was seen by cardiology who recommended discontinuing medication that can cause orthostasis, donepezil was discontinued. Amlodipine was discontinued and she was started on losartan 25mg instead. She was discharged to nursing facility for few days and was now back home. She was discharged from hospital on: Carbamazepine 300mg in the morning and 400mg at bedtime - She was taking 400mg twice a day before admission and has continued to take this dose. Trigeminal neuralgia pain was controlled. Quetiapine 25mg at bedtime - She was taking 50mg before admission, but was currently taking 25mg. She always had some trouble sleeping, but sleep was not so bad lately. She had another sleep study earlier this week and had follow up with sleep medicine in 02/2025. She was planning to try new mask to see if that would help. Memantine 5mg 1 tablet twice a day - No change Sertraline 25mg 1 tablet daily - No change Discontinued: donepezil 10mg - Her daughter was concerned about this medication being discontinued and impact on memory. Memory has been stable, forget at times and needs reminders. Her daughter manages her medications and will remind her take them. No significant dizziness and no further episodes. [facility] Medical History (Updated 12/15/24 @ 15:59 by Luz Wells CNP) Alzheimer dementia Insomnia MCI (mild cognitive impairment) Review of Systems Const Denies chills, Denies daytime sleepiness, Reports difficulty sleeping, Denies fatigue, Denies fever(s), Denies frequent falls, Denies headache(s), Denies increased appetite, Denies poor appetite, Denies snoring, Denies weakness, Denies weight gain and Denies weight loss Eyes Denies loss of vision ENT Denies vertigo, Denies dizziness, Denies headache(s) and Denies neck pain Card Denies chest pain at rest, Denies chest pain with activity, Denies syncope, Denies leg edema, Denies palpitations, Denies dyspnea and Denies dyspnea on exertion Resp Denies cough, Denies dyspnea, Denies dyspnea on exertion and Denies snoring GI Denies abdominal pain, Denies constipation, Denies heartburn, Denies diarrhea and Denies nausea Denies urinary frequency, Denies urinary incontinence and Denies urinary urgency Musc Denies abnormal gait, Denies back pain, Denies myalgias, Denies arthralgias, Denies neck pain, Denies numbness and Denies tingling Neuro Denies abnormal gait, Denies vertigo, Denies dizziness, Denies syncope, Denies frequent falls, Denies headache(s), Denies lack of coordination, Denies loss of vision, Reports memory loss, Denies numbness, Denies Other visual disturbances, Denies restless legs, Denies seizure-like activity, Denies tingling, Denies paresthesias, Denies tremor(s) and Denies weakness Psych Denies anxiety, Denies depression, Denies auditory hallucinations, Reports memory loss and Denies visual hallucinations Endo Denies fatigue and Denies palpitations Physical Exam Const Other: Deferred as patient not present Results Reviewed Results Reviewed: 06/2023 labs ok 11/2023 CT brain: 1. Deep white matter and periventricular hypoattenuation, nonspecific; most likely sequela of chronic microvascular angiopathy ischemia. 2. The ventricles are prominent bilaterally, especially the temporal horns of the lateral ventricles, left more than right, this is indicative of underlying loss of gyral volume, although nonspecific has been described in association with Alzheimer disease Assessment & Plan Assessment & Plan (1) Alzheimer dementia: Code(s): G30.9 - Alzheimer's disease, unspecified; F02.80 - Dementia in other diseases classified elsewhere, unspecified severity, without behavioral disturbance, psychotic disturbance, mood disturbance, and anxiety Category: Medical Qualifiers: Alzheimer's disease onset: unspecified onset Dementia severity: unspecified severity Dementia behavioral or psychological symptom: unspecified whether behavioral, psychotic, or mood disturbance or anxiety Qualified Code(s): G30.9 - Alzheimer's disease, unspecified; F02.80 - Dementia in other diseases classified elsewhere, unspecified severity, without behavioral disturbance, psychotic disturbance, mood disturbance, and anxiety Plan: [facility] [place]. Medication changes reviewed with daughter and questions answered. No significant dizziness and no further episodes. Donepezil discontinued during hospitalization as medication may worsen orthostasis - contributing to dizziness, syncope, and falls. Continue memantine 5mg 1 tablet twice a day. Continue sertraline 25mg 1 tablet daily. Stay physically and socially active. (2) Trigeminal neuralgia: Code(s): G50.0 - Trigeminal neuralgia Category: Medical Plan: Continue carbamazepine 200mg 2 tablets in the morning and 2 tablets at bedtime. (3) Insomnia: Code(s): G47.00 - Insomnia, unspecified Category: Medical Qualifiers: Insomnia type: unspecified Qualified Code(s): G47.00 - Insomnia, unspecified Plan: Continue quetiapine 25mg 1 tablet at bedtime. Plan Meds tried: hydroxyzine 25mg, mirtazapine 7.5mg, doxepin 3mg, trazodone 50mg, amitriptyline 25mg, zolpidem 5mg Coding Level of Care Code Est Pt Level 4 (60019) Diagnoses Alzheimer's dementia, unspecified dementia severity, unspecified timing of dementia onset, unspecified whether behavioral, psychotic, or mood disturbance or anxiety G30.9; F02.80 Alzheimer's disease onset: unspecified onset Dementia severity: unspecified severity Dementia behavioral or psychological symptom: unspecified whether behavioral, psychotic, or mood disturbance or anxiety Trigeminal neuralgia G50.0 Insomnia, unspecified type G47.00 Insomnia type: unspecified
--- OUTSIDE RECORDS SUMMARY | 2024-12-15 18:43 | XMS_ITS | Clinical Summary ---
Author Organization [facility] Address [address] [place], [place] [id number] Phone Care Team Providers Care Wheel Aligner Name Role Phone Yumiko Navarro MD Primary Care Provid er Allergies No known active allergies Medications mirtazapine (REMERON) 7.5 MG tablet Take 15 mg by mouth nightly at bedtime. 2 Active naproxen (NAPROSYN) 500 MG tablet Take 1 tablet (500 mg total) by mouth 2 (two) times a day for 3 days. Then twice daily as needed for pain, inflammation 20 tablet 2 Active Active Problems No known active problems Social History Tobacco Use Types Packs/Day Years [...] on file Sexual Orientation Not on file Last Filed Vital Signs Vital Sign Reading Time Taken Comments Blood Pressure 147/85 09/09/2021 2:38 PM EDT Pulse 68 09/09/2021 2:38 PM EDT Temperature 37.1 C (98.8 F) 09/09/2021 2:38 PM EDT Respiratory Rate 12 09/09/2021 2:38 PM EDT Oxygen Saturation 99% 09/09/2021 2:38 PM EDT Inhaled Oxygen Concentration - - Weight 55.8 kg (123 lb) 09/09/2021 2:38 PM EDT Height 165.1 cm (5' 5 ) 09/09/2021 2:38 PM EDT Body Mass Index 20.47 09/09/2021 2:38 PM EDT Plan of Treatment Health Maintenance Due Date Last Done Comments LIPID PANEL 1951 DEPRESSION SCREENING 1963 HEPATITIS C SCREENING 12/11/1969 MAMMOGRAM 1991 COLOGUARD 12/11/1996 COLONOSCOPY 12/11/1996 COLORECTAL CANCER SCREENING 12/11/1996 FIT TEST 12/11/1996 FOBT 12/11/1996 SIGMOIDOSCOPY 12/11/1996 VIRTUAL COLONOSCOPY 12/11/1996 PNEUMOCOCCAL VACCINES (50+ years) (1 of 1 - PCV) 12/11/2001 ZOSTER VACCINES (1 of 2) 12/11/2001 OSTEOPOROSIS SCREENING INITIAL (ONE-TIME) 12/11/2016 Adult Td,Tdap Booster 05/27/2022 05/27/2012, 005 INFLUENZA VACCINE (#1) 2024 8, 12/17/2016, 01/27/2015, Additional history exists COVID-19 VACCINE (2024- season) 2024 04/11/2021, 07/06/2020, 06/15/2020 RSV VACCINE (1 - 1-dose 75+ series) 12/11/2026 SMOKING STATUS SCREENING (Once After 26 Yrs) Completed 09/09/2021 HEPATITIS A VACCINES Aged Out No long er eligible based on patient's age to complete this topic HIB VACCINES Aged Out No longer eligi ble based on patient's age to complete this topic MENINGOCOCCAL VACCINES (ACWY) Aged Out No longer eligible based on patient's age to complete this topic MENINGOCOCCAL VACCINES (B) Aged Out N o longer eligible based on patient's age to complete this topic Medical Devices Not on file Insurance MEDICARE PART A & B [employer] MEDEX SUPPLEMENT MEDICARE PART A & B [employer] MED[employer] SUPPLEMENT MEDICARE PART A & B [employer] MED[employer] SUPPLEMENT MEDICARE PART A & B [employer] MEDEX SUPPLEMENT MEDICARE PART A & B [employer] SUPPLEMENT MEDICARE PART A & B [employer] SUPPLEMENT MEDICARE PART A & B [employer] MED[employer] SUPPLEMENT MEDICARE PART A & B [employer] MEDEX SUPPLEMENT MEDICARE PART A & B [employer] MEDEX SUPPLEMENT Care Teams Wheel Aligner Relationship Specialty Start Date End Date Yumiko Navarro MD [address] [id number] PCP - General Internal Medicine 05/27/21 Additional Source Comments The information contained in this document represents components of the legal health record. It is not the complete legal health record.[facility]
== END 2024-12-15 17:18 | disposition home or self-care (01) ==
LOC: HO.HSM 15:38
PROVIDERS: PCP Internal Medicine; Visit Provider Registered Nurse
DX: G30.9 Alzheimer's disease, unspecified (principal); F02.80 Dementia in other diseases classified elsewhere, unspecified severity, without behavioral disturbance, psychotic disturbance, mood disturbance, and anxiety; G50.0 Trigeminal neuralgia; G47.00 Insomnia, unspecified
CPT/HCPCS: 99214

== ENCOUNTER → 2024-12-15 15:38 | Outpatient (BNVA) | payer MEDICARE, SELFPAY | PROVIDERS: PCP Internal Medicine; Visit Provider Registered Nurse | DX: G30.9 Alzheimer's disease, unspecified (principal); F02.80 Dementia in other diseases classified elsewhere, unspecified severity, without behavioral disturbance, psychotic disturbance, mood disturbance, and anxiety; G50.0 Trigeminal neuralgia; G47.00 Insomnia, unspecified | CPT/HCPCS: 99212 ==

== ENCOUNTER 2025-03-20 15:46 | Outpatient (AMB) | payer MEDICARE, SELFPAY ==
--- OUTSIDE RECORDS SUMMARY | 2021-05-27 14:45 | XMS_ITS | Encounter Summary ---
Author Organization [facility] Address [address] [place] [address] [place] [phone] Phone Care Team Providers Care Ware Tester Name Role Phone Yumiko Navarro MD Primary Care Provid er Encounter Details Date Type Department Care Team (Late st Contact Info) Description 05/27/2021 2:45 PM EST Hospital Encounter [facility] [address] [place] [phone] Kaleigh Aguilar FNP [address] [place] [phone] [email or web address] Social History Tobacco Use Types Packs/Day Years Used Date Smoking Tobacco: Never Smokeless Tobacco: Never Alcohol Use Standard Drinks/Week Comments Not Currently 0 (1 standard drink = 0.6 oz pur e alcohol) Education Answer Date Recorded Are you interested in more education? Not on anne e 08/02/2022 Are you concerned about learning? Not on file 08/02/2022 No 08/02/2022 No 08/02/2022 Digital Access Answer Date Recorded No 08/31/2022 No 08/31/2022 No 08/31/2022 Reliable internet access at home? Not on file 08/31/2022 Device with a working camera? Not on file Comments Unknown Sex and Gender Information Value Date Recorded Sex Assigned at Not on file Legal Sex Female 2:20 PM EST Gender Identity Not on file Sexual Orientation Not on file documented as of this encounter Plan of Treatment Not on file documented as of this encounter Procedures Procedure Name Priority Date/Time Associated Diagnosis Comments XR ANKLE 3 OR MORE VIEWS (LEFT) Urgent/patient waiting 05/27/2021 2:53 PM EST Fall, initial encounter documented in this encounter Results * XR ANKLE 3 OR MORE VIEWS (LEFT) (05/27/2021 2:53 PM EST) Anatomical Region Laterality Modality Ankle Left Computed Radiogr aphy 05/27/2021 3:01 PM EST Impressions 05/27/2021 3:13 PM EST 1.A nondisplaced lateral malleolus tip acute fracture/avulsion. 2.Trace tibiotalar joint effusion. 3.Haziness of the pre-aquilles fat pad, suggests tendinopathy. ATTESTATION: I, Alma Ojeda as teaching physician, have reviewed the images for this case and if necessary edited the report originally created by Robbin España. Narrative 05/27/2021 3:13 PM EST EXAM:XR ANKLE 3 OR MORE VIEWS (LEFT) HISTORY: S/P Fall; one week ago, slipped on ice, pain and swelling lateral malleolus COMPARISON: None. FINDINGS: A transverse linear lucency through the tip of the lateral malleolus with associated ill-defined subcentimeter ossific fragment. No dislocation. Symmetric and congruent ankle mortise. The joint spaces are preserved. Trace tibiotalar joint effusion. Prominent soft tissue swelling overlies the lateral malleolus. Also, haziness of pre-aquilles fat pad is noted. Procedure Note Alma Ojeda MD - 05/27/2021 EXAM:XR ANKLE 3 OR MORE VIEWS (LEFT) HISTORY: S/P Fall; one week ago, slipped on ice, pain and swelling lateralmalleolus COMPARISON: None. FINDINGS: A transverse linear lucency through the tip of the lateral malleolus withassociated ill-defined subcentimeter ossific fragment. No dislocation. Symmetric and congruent ankle mortise. The joint spaces are preserved.Trace tibiotalar joint effusion. Prominent soft tissue swelling overlies the lateral malleolus. Also,haziness of pre-aquilles fat pad is noted. IMPRESSION: 1.A nondisplaced lateral malleolus tip acute fracture/avulsion. 2.Trace tibiotalar joint effusion. 3.Haziness of the pre-aquilles fat pad, suggests tendinopathy. ATTESTATION: I, Alma Ojeda as teaching physician, have reviewed theimages for this case and if necessary edited the report originally createdby Robbin España. us Kaleighryan Varelaes BULK SAUSAGE CASING TIER OFF IMG XR LOWER EXTREMITY Znea l Result documented in this encounter Visit Diagnoses Not on filedocumented in this encounter Care Teams Ware Tester Relationship Specialty Start Date End Date Yumiko Navarro MD [address] [id number] PCP - General Internal Medicine 05/27/21 documented as of this encounter Additional Source Comments The information contained in this document represents components of the legal health record. It is not the complete legal health record.[facility]
--- OUTSIDE RECORDS SUMMARY | 2025-03-16 13:04 | XMS_ITS | Encounter Summary ---
Author Organization [facility] [place] [address] Care Team Providers Care Buckle Strap Puncher Name Role Phone Iman Marroquin MD Primary Care Provider [phone] Reason for Referral * Imaging (Routine) - Authorized Specialty Diagnoses / Procedures Referred By Nannette t Referred To Contact Radiology Diagnoses Osteopenia, unspecified location Vitamin D deficiency Moderate early onset Alzheimer's dementia without behavioral disturbance, psychotic disturbance, mood disturbance, or anxiety (CMS/HCC V24, CMS/HCC V28) Primary hypertension Asymptomatic menopausal state Procedures BD Bone Density DXA Axial Skeleton Rupali Alvarez PA [address] [place] [address] Phone: tel: fax: [address] Phone: tel: Referral ID Status Reason Start Date Expiration Date V isits Requested Visits Authorized [id number] Authorized 09/26/2024 09/26/2025 1 1 Reason for Visit * Imaging (Routine) - Authorized Specialty Diagnoses / Procedures Referred By Contac t Referred To Contact Radiology Diagnoses Osteopenia, unspecified location Vitamin D deficiency Moderate early onset Alzheimer's dementia without behavioral disturbance, psychotic disturbance, mood disturbance, or anxiety (CMS/HCC V24, CMS/HCC V28) Primary hypertension Asymptomatic menopausal state Procedures BD Bone Density DXA Axial Skeleton Rupali Alvarez PA [address], [place] Phone: tel: fax: [facility] [address] Phone: tel: Referral ID Status Reason Start Date Expiration Date V isits Requested Visits Authorized [id number] Authorized 09/26/2024 09/26/2025 1 1 Encounter Details Date Type Department Care Team (Latest Contact Info) Description 03/16/2025 1:04 PM EST - 03/16/2025 11:59 PM EST Hospital Encounter Bone Density - [address] [phone] Osteopenia, unspecified location; Vitamin D deficiency; Moderate early onset Alzheimer's dementia without behavioral disturbance, psychotic disturbance, mood disturbance, or anxiety (CMS/HCC V24, CMS/HCC V28); Primary hypertension; Asymptomatic menopausal state Discharge Disposition: Home or Self Care Social History Tobacco Use Types Packs/Day Years Used Date Smoking Tobacco: Never Smokeless Tobacco: Never Alcohol Use Standard Drinks/Week Comments No 0 (1 standard drink = 0.6 oz pur e alcohol) Housing Instability Answer Date Recorde d Are you worried that in the next 2 months you may not have stable housing? No 09/26/2024 Food Access & Nutrition Answer Date Rec orded Do you have access to a vari ety of food including fruits and vegetables? Yes 09/26/2024 Access to Healthcare Answer Date Record ed Within the last 3 months, erick zafar many times did you visit the emergency department for your medical care? 0 09/26/2024 Health Literacy Answer Date Recorded How often do you need to hav e someone help you when you read instructions, pamphlets, or other written material from your doctor or pharmacy? Never 09/26/2024 Caregiver: How often do you need to have someone help you when you read instructions, pamphlets, or other written material from your doctor or pharmacy? Not on file 09/26/2024 Financial Risk Answer Date Recorded How hard is it for you to pa y for the very basics like food, housing, medical care, and air conditioning / heating? Not very hard 09/26/2024 Transportation Answer Date Recorded Has the lack of transportati on kept you from meetings, work, or from getting things needed for daily living? No Has the lack of transportati on kept you from medical appointments or from getting medications? No 09/26/2024 Social Isolation Answer Date Recorded How often do you feel lonely or isolated from those around you? Sometimes 09/26/2024 Food Risk Answer Date Recorded Within the past 12 months we worried whether our food would run out before we got money to buy more. Never true 09/26/2024 Within the past 12 months th e food we bought just didn't last and we didn't have money to get more. Never true 09/26/2024 Dependent Care Answer Date Recorded Do you need help finding or paying for care for your loved ones. For example, child welfare director or elderly care for an older adult? No 09/26/2024 Education Answer Date Recorded Do you think completing more education or training, like finishing a GED, going to college, or learning a trade, would be helpful for you? No 09/26/2024 Employment and Income Answer Date Recor ded During the last four weeks, have you been actively looking for work? No 09/26/2024 Living Situation Answer Date Recorded What is your living situation? Unrecognized valu e 09/26/2024 Comments No Sex and Gender Information Value Date Recorded Sex Assigned at Not on file Legal Sex Female 7:48 AM EST Gender Identity Not on file Sexual Orientation Not on file documented as of this encounter Medications at Time of Discharge carBAMazepine (TEGretol) 200 mg tablet Take 2 tablets (400 mg total) by mouth 2 (two) times a day. 11/24/2024 cholecalciferol (VITAMIN D-3) 50 mcg (2,000 unit) capsule Take 1 capsule (2,000 Units total) by mouth 1 (one) time each day. To be started after completing the weekly vitamin D course 01/08/2023 losartan (COZAAR) 25 mg tablet Take 1 tablet (25 mg total) by mouth 1 (one) time each day. 90 tablet 1 11/24/2024 memantine (NAMENDA) 5 mg tablet Take 1 tablet (5 mg total) by mouth 2 (two) times a day. 08/09/2024 QUEtiapine (SEROquel) 25 mg tablet Take by mouth. at bedtime 08/24/2024 sertraline (ZOLOFT) 25 mg tablet Take 1 tablet (25 mg total) by mouth 1 (one) time each day. documented as of this encounter Discharge Disposition Disposition Code Departure Means Destination Home or Self Care documented in this encounter Plan of Treatment Upcoming Encounters Date Type Department Care Team (Late st Contact Info) Description 08/01/2025 3:30 PM EDT Office Visit Adult Medicine [facility] [address] [place], [place] [phone] Rupali Alvarez PA [address], [place] documented as of this encounter Procedures Procedure Name Priority Date/Time Associated Diagnosis Comments BD BONE DENSITY DXA AXIAL SKELETON Routine 03/16/2025 1:36 PM EST Osteopenia, unspecified location Vitamin D deficiency Moderate early onset Alzheimer's dementia without behavioral disturbance, psychotic disturbance, mood disturbance, or anxiety (CMS/[facility] V24, CMS/[facility] V28) Primary hypertension Asymptomatic menopausal state documented in this encounter Results * BD Bone Density DXA Axial Skeleton (03/16/2025 1:36 PM EST) Anatomical Region Laterality Modality Wrist, Hip, L-spine Bone Densito metry 03/16/2025 2:05 PM EST Impressions 03/16/2025 2:09 PM EST Osteopenia by WHO criteria. This patient has a 13% risk of major osteoporotic fracture and a 1.8% risk of hip fracture over the next 10 years. (World Health Organization Fracture Risk Assessment) The [facility] Department of Internal Medicine recommends using National Osteoporosis Foundation (NOF) guidelines in treatment decisions related to osteoporosis. NOF guidelines suggest considering treatment for postmenopausal women and men aged 50 or older presenting with the following: History of hip or vertebral fracture. T-score = -2.5 (DXA) at the femoral neck, total hip, or spine, after appropriate evaluation to exclude secondary causes. Low bone mass (T-score between -1.0 and -2.5 at the femoral neck or spine) AND a 10-year probability of a hip fracture = 3% OR a 10-year probability of a major osteoporosis-related fracture = 20% based on the [place]-adapted WHO algorithm Please note that all treatment decisions require clinical judgment and consideration of individual patient factors, including patient preferences, co-morbidities, previous drug use, risk factors not captured in the FRAX model (e.g., frailty, falls, vitamin D deficiency, increased bone turnover, interval significant decline in bone density) and possible under- or over-estimation of fracture risk by FRAX. Optional alternative screening schedule based on evelin Galvin., [facility] April 24, 2011 for patients with osteopenia (based on hip BMD T-score) is as follows: * advanced osteopenia (T scores -2.00 to -2.49), BMD testing every year * moderate osteopenia (T scores -1.50 to -1.99), BMD testing every 5 years mild osteopenia or normal BMD (T scores -1.50 and higher), BMD testing every 15 years -------- FINAL REPORT -------- Dictated By: Isa Lees Dictated Date: 03/16/2025 14:05 ET Assigned Physician: Isa Lees Reviewed and Electronically Signed By: Isa Lees Signed Date: 03/16/2025 14:09 ET Workstation ID: [id number] Transcribed By: Self Edit Transcribed Date: 03/16/2025 14:05 ET Narrative 03/16/2025 2:09 PM EST BONE DENSITY SCAN (DEXA): FINDINGS: Lumbar Spine T-score is -1.5. (SD relative to 20-29 y/o adult) Z-score is 0.8. (SD relative to age matched peers) This is considered osteopenia by WHO criteria. Left Hip T-score is -1.0. Z-score is 0.9. This is considered normal by WHO criteria. Comparison exam(s): 12/31/2021. 2.6% decrease in lumbar spine bone mineral density which is statistically significant at the 95% confidence level. No statistically significant change in left hip bone mineral density. Procedure Note Isa Lees MD - 03/16/2025 BONE DENSITY SCAN (DEXA): FINDINGS: Lumbar Spine T-score is -1.5. (SD relative to 20-29 y/o adult) Z-score is 0.8. (SD relative to age matched peers) This is considered osteopenia by WHO criteria. Left Hip T-score is -1.0. Z-score is 0.9. This is considered normal by WHO criteria. Comparison exam(s): 12/31/2021. 2.6% decrease in lumbar spine bonemineral density which is statistically significant at the 95% confidencelevel. No statistically significant change in left hip bone mineraldensity. IMPRESSION: Osteopenia by WHO criteria. This patient has a 13% risk of majorosteoporotic fracture and a 1.8% risk of hip fracture over the next 10years. (World Health Organization Fracture Risk Assessment) The [facility] Department of Internal Medicine recommendsusing National Osteoporosis Foundation (NOF) guidelines in treatmentdecisions related to osteoporosis. NOF guidelines suggest consideringtreatment for postmenopausal women and men aged 50 or older presentingwith the following: History of hip or vertebral fracture. T-score = -2.5 (DXA) at the femoral neck, total hip, or spine, afterappropriate evaluation to exclude secondary causes. Low bone mass (T-score between -1.0 and -2.5 at the femoral neck or spine)AND a 10-year probability of a hip fracture = 3% OR a 10-year probabilityof a major osteoporosis-related fracture = 20% based on the [place]-adapted WHOalgorithm Please note that all treatment decisions require clinical judgment andconsideration of individual patient factors, including patientpreferences, co-morbidities, previous drug use, risk factors not capturedin the FRAX model (e.g., frailty, falls, vitamin D deficiency, increasedbone turnover, interval significant decline in bone density) and possibleunder- or over-estimation of fracture risk by FRAX. Optional alternative screening schedule based on evelin Galvin., NEJMJanuary 2011 for patients with osteopenia (based on hip BMD T-score)is as follows: * advanced osteopenia (T scores -2.00 to -2.49), BMD testing every year * moderate osteopenia (T scores -1.50 to -1.99), BMD testing every 5years mild osteopenia or normal BMD (T scores -1.50 and higher), BMD testingevery 15 years -------- FINAL REPORT -------- Dictated By: Isa Lees Dictated Date: 03/16/2025 14:05 ET Assigned Physician: Isa Lees Reviewed and Electronically Signed By: Isa Lees Signed Date: 03/16/2025 14:09 ET Workstation ID: [id number] Transcribed By: Self Edit Transcribed Date: 03/16/2025 14:05 ET us Rupali ROGER IMG DXA PROCEDURES Final Resu lt documented in this encounter Visit Diagnoses Diagnosis Osteopenia, unspecified location Vitamin D deficiency Moderate early onset Alzheimer's dementia without behavioral disturbance, psychotic disturbance, mood disturbance, or anxiety (CMS/[facility] V24, CMS/[facility] V28) Primary hypertension Unspecified essential hypertension Asymptomatic menopausal state documented in this encounter Additional Health Concerns Assessment Noted Time PHQ-9 Depression Total Score: 1 09/27/19 25 5:00 PM EDT A fall risk assessment has been complete d for the patient 09/26/2024 4:58 PM EDT documented as of this encounter Care Teams Buckle Strap Puncher Relationship Specialty Start Date End Date Iman Marroquin MD [address] [place] [address] PCP - General Internal Medicine 06/10/21 documented as of this encounter
--- NOTE | 2025-03-20 15:47 | A.OFFVIS_ITS ---
Intake Visit Reasons: 3m ad Accompanied by: Daughter Allergies No Known Allergies (No Known Allergies*) Allergy (Unverified 03/20/25 15:48) Medication List - Last Reconciled 03/20/25 by Luz Wells CNP carbamazepine 200 mg PO BID cefuroxime axetil 500 mg PO Q12H 5 days losartan 25 mg PO DAILY memantine 5 mg PO BID 90 days quetiapine 25 - 50 mg PO BEDTIME sertraline 25 mg PO DAILY 90 days HPI Comments Details: 74-year-old woman with history of left V1 distribution trigeminal neuralgia (04/2019, 10/2022, 06/2023) treated with carbamazepine, insomnia, MARNI (unable to tolerate CPAP and recommended CBT by sleep medicine), and dementia. She had neuropsych testing by Dr. Diaz in 07/2023 and 02/2024 which showed mild to moderate dementia, and repeat testing in 02/2025 which showed moderate dementia. She was admitted to [facility] in 11/2024 for dizziness. While being repositioned by EMS, she passed out for 30-60 seconds, and vomited when she came to. She had another episode at the hospital where she passed out while using the commode. Orthostatic vitals were positive. EKG NSR. Echocardiogram showed normal EF, LV size and systolic function, no regional wall motion abnormalities, mild septal thickening. She was seen by cardiology who recommended discontinuing medication that can cause orthostasis, and donepezil was discontinued. Amlodipine was discontinued and she was started on losartan 25mg instead. She was doing okay. Memory was about the same, forgetful at times and would need reminders. She was still living alone, but she had [employer] for few hours 2 days/week. She was doing crosswords and sodoku. Her medications were managed by her daughter, but she was still sometimes forgetting to take them. No further episodes of dizziness or syncope. No falls. Trigemenial neuralgia pain was controlled. Her most bothersome symptom continued to be difficulty sleeping at night. She had new CPAP mask, but she was still having trouble tolerating wearing mask at night, or had trouble using it or forgetting to put it on. She appointment for second opinion with [facility] in 10/2025. She had neuropsych testing in 02/2025, and her daughter had some questions about recommendations. [facility] Medical History (Updated 12/15/24 @ 15:59 by Luz Wells CNP) Alzheimer dementia Insomnia MCI (mild cognitive impairment) Review of Systems Const Denies chills, Denies daytime sleepiness, Reports difficulty sleeping, Denies fatigue, Denies fever(s), Denies frequent falls, Denies headache(s), Denies increased appetite, Denies poor appetite, Denies snoring, Denies weakness, Denies weight gain and Denies weight loss Eyes Denies loss of vision ENT Denies vertigo, Denies dizziness, Denies headache(s) and Denies neck pain Card Denies chest pain at rest, Denies chest pain with activity, Denies syncope, Denies leg edema, Denies palpitations, Denies dyspnea and Denies dyspnea on exertion Resp Denies cough, Denies dyspnea, Denies dyspnea on exertion and Denies snoring GI Denies abdominal pain, Denies constipation, Denies heartburn, Denies diarrhea and Denies nausea Denies urinary frequency, Denies urinary incontinence and Denies urinary urgency Musc Denies abnormal gait, Denies back pain, Denies myalgias, Denies arthralgias, Denies neck pain, Denies numbness and Denies tingling Neuro Denies abnormal gait, Denies vertigo, Denies dizziness, Denies syncope, Denies frequent falls, Denies headache(s), Denies lack of coordination, Denies loss of vision, Reports memory loss, Denies numbness, Denies Other visual disturbances, Denies restless legs, Denies seizure-like activity, Denies tingling, Denies paresthesias, Denies tremor(s) and Denies weakness Psych Denies anxiety, Denies depression, Denies auditory hallucinations, Reports memory loss and Denies visual hallucinations Endo Denies fatigue and Denies palpitations Physical Exam Const Other: General Appearance:? normal, in no acute distress. Heart:? S1, S2 normal, no murmurs. Lungs:? clear anteriorly and posteriorly. Musculoskeletal:? normal. Extremities:? no edema. Psych:? alert, as below. Neuro Other: Abnormal Neurological Findings:?MMSE 23/30? Mental Status: alert, as below. Cranial Nerves: Pupils are equal, round, and reactive to light. External ocular muscles are intact. Visual montesinos are full, no ptosis. Face is symmetrical, no facial weakness or droop. Facial sensations are normal. Tongue protrudes in midline. Palate elevates symmetrically. Shoulder shrugging is normal Motor Examination: Normal muscle tone, bulk and strength. No atrophy or fasciculations. No drift of the extended upper extremities. DTR 2+. Plantars are flexor. Sensory Exam: Normal light touch, temperature, pinprick, vibration, and joint- position sensations. Rhomberg sign is absent. Coordination: No ataxia. No titubation. Gait Exam: Within normal limits. Cerebellar Signs: [id number] is okay. Extrapyramidal System: No tremor, rigidity with normal facial expressions. No bradykinesia. No bradyphrenia. Normal arm swing and posture. No propulsion or retropulsion. Speech: Normal. MMSE Level of Consciousness: Alert. Orientation: Knows correct year, month, and season. Does not know date, or day. Knows correct city and state. Knows correct location. Does not know county or floor. Registration: Able to register 3 objects. Attention: Serial 7's performed accurately to 65. Recall: Able to recall 0 out of 3 objects. Language: Normal spontaneous speech, fluency, repetition, naming, comprehension, reading, and writing. Total Score: 23/30. Results Reviewed Results Reviewed: Labs 06/2023: ok CT brain 11/2023: 1. Deep white matter and periventricular hypoattenuation, no nspecific; most likely sequela of chronic microvascular angiopathy ischemia. 2. The ventricles are prominent bilaterally, especially the temporal horns of the lateral ventricles, left more than right, this is indicative of underlying loss of gyral volume, although nonspecific has been described in association with Alzheimer disease Neuropsych testing Dr. Diaz 02/2025: Moderate dementia Assessment & Plan Assessment & Plan (1) Alzheimer dementia: Code(s): G30.9 - Alzheimer's disease, unspecified; F02.80 - Dementia in other diseases classified elsewhere, unspecified severity, without behavioral disturbance, psychotic disturbance, mood disturbance, and anxiety Category: Medical Qualifiers: Alzheimer's disease onset: unspecified onset Dementia severity: unspecified severity Dementia behavioral or psychological symptom: unspecified whether behavioral, psychotic, or mood disturbance or anxiety Qualified Code(s): G30.9 - Alzheimer's disease, unspecified; F02.80 - Dementia in other diseases classified elsewhere, unspecified severity, without behavioral disturbance, psychotic disturbance, mood disturbance, and anxiety Plan: Neuropsych testing report and recommendations reviewed, questions answered. Increase memantine 10mg 1 tablet twice a day. She was taking sertraline 25mg 1 tablet daily in the morning, may try taking medication at bedtime to see if that helps with sleep. Stay physically and socially active. (2) Trigeminal neuralgia: Code(s): G50.0 - Trigeminal neuralgia Category: Medical Plan: Continue carbamazepine 200mg 2 tablets in the morning and 2 tablets at bedtime. (3) Insomnia: Code(s): G47.00 - Insomnia, unspecified Category: Medical Qualifiers: Insomnia type: unspecified Qualified Code(s): G47.00 - Insomnia, unspecified Plan: Continue quetiapine 25mg 1-2 tablet at bedtime as needed for sleep. Plan Meds tried: hydroxyzine 25mg, mirtazapine 7.5mg, doxepin 3mg, trazodone 50mg, amitriptyline 25mg, zolpidem 5mg Donepezil stopped due to orthostatic hypotension Medications: New memantine 10 mg PO BID 180 tabs 1RF 90 days Discontinued memantine Discontinued Reason: Doctor's Order 5 mg PO BID 90 days 180 tabs 1RF Coding Level of Care Code Est Pt Level 4 (78383) Diagnoses Alzheimer's dementia, unspecified dementia severity, unspecified timing of dementia onset, unspecified whether behavioral, psychotic, or mood disturbance or anxiety G30.9; F02.80 Alzheimer's disease onset: unspecified onset Dementia severity: unspecified severity Dementia behavioral or psychological symptom: unspecified whether behavioral, psychotic, or mood disturbance or anxiety Trigeminal neuralgia G50.0 Insomnia, unspecified type G47.00 Insomnia type: unspecified
--- OUTSIDE RECORDS SUMMARY | 2025-03-20 22:10 | XMS_ITS | Encounter Summary ---
Author Organization [facility] [place] [address] Care Team Providers Care Hat Body Sorter Name Role Phone Iman Marroquin MD Primary Care Provider [phone] Reason for Referral * Consultation (Routine) - Closed Specialty Diagnoses / Procedures Referred By Contac t Referred To Contact Sleep Medicine Diagnoses Insomnia MARNI (obstructive sleep apnea) Iman Marroquin MD [address] [place] [address] Phone: tel: fax: [facility] - Sleep Medicine [address] [address] Phone: tel: fax: Referral ID Status Reason Start Date Expiration Date V isits Requested Visits Authorized [id number] Closed Specialty Services Required 03/15/2025 03/15/2026 6 6 Reason for Visit * Reason Onset Date Comments Referral 03/15/2025 Sleep Medicine Encounter Details Date Type Department Care Team (Late st Contact Info) Description 03/15/2025 Telephone Adult Medicine [address] [phone] Iman Marroquin MD [address] [place] [address] Social History Tobacco Use Types Packs/Day Years [...] Record ed Within the last 3 months, ho w many times did you visit the emergency [...] your loved ones. For example, child welfare counselor or elderly care for an older adult? [...] on file documented as of this encounter Progress Notes * Susan De Dios - 03/15/2025 3:17 PM EST What insurance does the patient have today? Payor: MEDICARE PART A & B and [facility] [place] PPO Referrals cannot be processed if the insurance is not accurate. If the insurance listed above is NO BILLING INFORMATION FOUND FOR THIS ENCOUNTER then the patients correct insurance must be obtainedand registered in [facility] or their referral can not be processed. Name of person calling to request this referral? Olimpia Espinoza Referred To Provider (Include first and last name): [facility] NPI (if known): [id number] Order/Specialty requested Sleep Medicine Chief Complaint (Note: This is not a body part or a procedure): insomnia and MARNI Has the patient seen provider for this problem/Dx before? no Referred To Provider Address: [address] [place] [address] Referred To Provider Referred To Provider Does patient have an appointment scheduled?: no If yes, what is the date of the appointment?: n/a Is this a retro request? no Number of visits requested: 6 Is this appointment related to: MVA or worker compensation? no Daughter would like a call when referral is being processed from the Referral Relations Department Copied from [facility] #[id number]. Topic: Referral - Request >> Mar 15, 2025 3:16 PM Susan Villalta wrote: Telephone Incoming Contact name: Olimpia Espinoza Outcome: contacted Comments: Patient's daughter would like a referral for Sleep medicine to be placed for her mom to be seen at [facility]. documented in this encounter Plan of Treatment Upcoming Encounters Date Type Department Care Team (Late st Contact Info) Description 08/01/2025 3:30 PM EDT Office Visit Adult Medicine [facility] [address], [place] [phone] Rupali Alvarez PA [address] [place], [place] Scheduled Referrals Name Type Priority Associated Diagnoses Order Schedule Ambulatory referral to Sleep Medicine Outpatient Referral Routine Insomnia MARNI (obstructive sleep apnea) 1 Occurrences starting 03/15/2025 until 03/15/2026 documented as of this encounter Visit Diagnoses Diagnosis Insomnia- Primary Insomnia, unspecified MARNI (obstructive sleep apnea) Obstructive sleep apnea (adult) (pediatric) documented in this encounter Additional Health Concerns Assessment Noted Time PHQ-9 Depression Total Score: 1 09/27/19 25 5:00 PM EDT A fall risk assessment has been complete d for the patient 09/26/2024 4:58 PM EDT documented as of this encounter Care Teams Hat Body Sorter Relationship Specialty Start Date End Date Iman Marroquin MD [address] [place], [place] PCP - General Internal Medicine 06/10/21 documented as of this encounter
--- OUTSIDE RECORDS SUMMARY | 2025-03-20 22:11 | XMS_ITS | Encounter Summary ---
Author Organization [facility] [place] [address] Care Team Providers Care Director Construction Services Name Role Phone Iman Marroquin MD Primary Care Provider [phone] Encounter Details Date Type Department Care Team (Late st Contact Info) Description 03/17/2025 Results Follow-Up Adult Medicine [facility] [address] [place], [place] [phone] Rupali Alvarez PA [address] [place], [place] Social History Tobacco Use Types Packs/Day Years [...] care for your loved ones. For example, director child abuse therapy or elderly care for an older adult? [...] as of this encounter Plan of Treatment Upcoming Encounters Date Type Department Care Team (Late st Contact Info) Description 08/01/2025 3:30 PM EDT Office Visit Adult Medicine [facility] [address], [place] [phone] Rupali Alvarez PA [address] [place], [place] documented as of this encounter Visit Diagnoses Not on filedocumented in this encounter Additional Health Concerns Assessment Noted Time PHQ-9 Depression Total Score: 1 09/27/19 25 5:00 PM EDT A fall risk assessment has been complete d for the patient 09/26/2024 4:58 PM EDT documented as of this encounter Care Teams Director Construction Services Relationship Specialty Start Date End Date Iman Marroquin MD [address] [place] [address] PCP - General Internal Medicine 06/10/21 documented as of this encounter
--- OUTSIDE RECORDS SUMMARY | 2025-03-20 22:11 | XMS_ITS | Encounter Summary ---
Author Organization [facility] [place] [address] Care Team Providers Care Green Meat Grader Name Role Phone Iman Marroquin MD Primary Care Provider [phone] Encounter Details Date Type Department Care Team (Late st Contact Info) Description 01/09/2025 Billing Patient Not Present Adult Medicine [facility] [address] [place], [place] [phone] Iman Marroquin MD [address] [place], [place] Social History Tobacco Use Types Packs/Day [...] care for your loved ones. For example, children counselor or elderly care for an older [...] living situation? Unrecognized valu e 09/26/2024 Comments Unknown Sex and Gender Information Value Date Recorded Sex Assigned at Not on file Legal Sex Female 7:48 AM EST Gender Identity Not on file Sexual Orientation Not on file documented as of this encounter Plan of Treatment Upcoming Encounters Date Type Department Care Team (Late st Contact Info) Description 08/01/2025 3:30 PM EDT Office Visit Adult Medicine [facility] [address] [place], [place] [phone] Rupali Alvarez PA [address] [place], [place] documented as of this encounter Visit Diagnoses Not on filedocumented in this encounter Additional Health Concerns Assessment Noted Time PHQ-9 Depression Total Score: 1 09/27/19 25 5:00 PM EDT A fall risk assessment has been complete d for the patient 09/26/2024 4:58 PM EDT documented as of this encounter Care Teams Green Meat Grader Relationship Specialty Start Date End Date Iman Marroquin MD [address] [place] [address] PCP - General Internal Medicine 06/10/21 documented as of this encounter
--- OUTSIDE RECORDS SUMMARY | 2025-03-20 22:11 | XMS_ITS | Clinical Summary ---
Author Organization [facility] Address [address] [place] [address] Phone Care Team Providers Care Mastic Worker Name Role Phone Iman Marroquin MD Primary Care Provider [phone] Allergies No known active allergies Medications cholecalciferol (VITAMIN D-3) 50 mcg (2,000 unit) capsule Take 1 capsule (2,000 Units total) by mouth 1 (one) time each day. To be started after completing the weekly vitamin D course 3 Active QUEtiapine (SEROquel) 25 mg tablet Take by mouth. at bedtime 5 Active memantine (NAMENDA) 5 mg tablet Take 1 tablet (5 mg total) by mouth 2 (two) times a day. 5 Active losartan (COZAAR) 25 mg tablet Take 1 tablet (25 mg total) by mouth 1 (one) time each day. 90 tablet 1 5 Active carBAMazepine (TEGretol) 200 mg tablet Take 2 tablets (400 mg total) by mouth 2 (two) times a day. 5 Active sertraline (ZOLOFT) 25 mg tablet Take 1 tablet (25 mg total) by mouth 1 (one) time each day. Active Active Problems Problem Noted Date Diagnosed Date Basal cell carcinoma (BCC) of scalp 02/01/2025 MARNI (obstructive sleep apnea) 11/24/2024 Cervicalgia 02/19/2024 Increased risk of breast cancer 02/17/2024 10/31/2013 Bilateral hearing loss 03/02/2023 Trigeminal neuralgia 01/08/2023 Nasal fracture 06/27/2022 Overview (02/17/2024): 06/26 comminuted nasal bone fractures Hypertension 06/27/2022 Vitamin D deficiency 05/20/2022 Alzheimer's dementia 03/18/2022 Overview (02/17/2024): Mild to moderate -Dr. Diaz, as of 07/30/23; follows with Dr. Greene Insomnia 09/16/2021 Osteopenia 11/11/2013 Overview (02/17/2024): 12/26 T score spine -1.3 hip -1.2 FRAX score 8.8% 10 year fracture risk Encounters Date Type Department Care Team Description 03/17/2025 Results Follow-Up [address] [phone] Rupali Alvarez PA 03/16/2025 1:04 PM EST - 03/16/2025 11:59 PM EST Hospital Encounter Bone Density - [address] [phone] Osteopenia, unspecified location; Vitamin D deficiency; Moderate early onset Alzheimer's dementia without behavioral disturbance, psychotic disturbance, mood disturbance, or anxiety (CMS/HCC V24, CMS/HCC V28); Primary hypertension; Asymptomatic menopausal state Discharge Disposition: Home or Self Care 03/15/[address] [phone] Iman Marroquin MD 02/01/2025 3:30 PM EDT Office Visit [address] [phone] Iman Marroquin MD Primary hypertension (Primary Dx); Moderate early onset Alzheimer's dementia without behavioral disturbance, psychotic disturbance, mood disturbance, or anxiety (CMS/HCC V24, CMS/HCC V28); Vitamin D deficiency; Osteopenia, unspecified location; Basal cell carcinoma (BCC) of scalp 01/11/2025 2:20 PM EDT - 01/11/2025 11:59 PM EDT Hospital Encounter Radiology Department - [address] [phone] Encounter for screening mammogram for breast cancer Discharge Disposition: Home or Self Care 01/09/2025 Billing Patient Not Present Adult Medicine [address] [phone] Iman Marroquin MD 12/27/2024 Telephone Adult Medicine [address] [phone] Iman Marroquin MD 12/22/2024 Telephone Adult Medicine [address] [phone] Iman Marroquin MD from Last 3 Months Immunizations Immunization Administration Dates Next Due Influenza Quadrivalent, with preservative (Fluzone; Afluria) 6mo and older 02/21/2014 Influenza trivalent, 0.5mL ( Fluad) 65yo and older 02/01/2025,12/17/2023,01/08/2023,01/24,01/08/2018,12/17/2016 Influenza trivalent, 0.5mL, preservative free (Fluarix; FluLaval; Fluzone) ages 6mo and older (Afluria) 3 years and older 01/27/2015,02/21/2014 Pneumococcal conjugate 20 va lent (Prevnar 20, PCV 20) 2mo and older 03/02/2023 Pneumococcal polysaccharide 23 valent (Pneumovax 23) 2yo and older 09/16/2021 Td Tetanus diptheria (Tdvax) 7yo and older 06/27/2022,04/01/2005 Tdap Tetanus diptheria acell ular pertussis (Boostrix; Adacel) 7yo and older 05/27/2012 Surgical History Surgery Date Site/Laterality Comments COLONOSCOPY 11/2006 Up to cecum, normal. COLONOSCOPY 01/15/2017 normal. BREAST BIOPSY 1990s Left lt. breast bx-benign SCREENING MAMMOGRAM 12/24/2023 Bilateral Medical History Medical History Date Comments Insomnia 09/16/2021 Vitamin D deficiency 05/20/2022 Nasal fracture 06/27/202206/26 comminuted nasal bone fractures Hypertension 06/27/2022 Trigeminal neuralgia 01/08/2023 MARNI (obstructive sleep apnea) 11/24/2024 Basal cell carcinoma (BCC) of scalp 02/01/2025 Family History Medical History Relation Name Comments Breast cancer Aunt m. aunt-dx'd 70s maternal Heart attack Father HTN Breast cancer Mother dx 50y asthma Relation Name Status Comments Aunt m. aunt-dx'd 70s Father Maternal Grandfather Maternal Grandmother Mother dx 50y Paternal Grandfather Paternal Grandmother Social History Tobacco Use Types Packs/Day Years Used Date Smoking Tobacco: Never Smokeless Tobacco: Never Tobacco Cessation:Counseling Given: Not Answered Alcohol Use Standard Drinks/Week Comments No 0 [...] care for your loved ones. For example, children's lunchroom supervisor or elderly care for an older adult? [...] on file Sexual Orientation Not on file Obstetrics History Para Term AB IAB SAB Ectopic Multiple Livin g Live Births 3 3 3 3 Date Outcome GA Total Labor Labor/2nd/3rd Weight Sex Type Anes PTL Mary A1 A5 Name Clin Term Term Term Last Filed Vital Signs Vital Sign Reading Time Taken Comments Blood Pressure 128/80 02/01/2025 3:48 PM EDT Pulse 74 02/01/2025 3:37 PM EDT Temperature 36.8 C (98.2 F) 02/01/2025 3:37 PM EDT Respiratory Rate 16 02/01/2025 3:37 PM EDT Oxygen Saturation 98% 02/01/2025 3:37 PM EDT Inhaled Oxygen Concentration - - Weight 57.3 kg (126 lb 6.4 oz) 02/01/2025 3:37 P M EDT Height 165.1 cm (5' 5 ) 02/01/2025 3:37 PM EDT Body Mass Index 21.03 02/01/2025 3:37 PM EDT Plan of Treatment Upcoming Encounters Date Type Department Care Team (Late st Contact Info) Description 08/01/2025 3:30 PM EDT Office Visit Adult Medicine [facility] [address] [place], [place] [phone] Rupali Alvarez PA [address] [place], [place] Health Maintenance Due Date Last Done Comments COVID-19 Vaccine ( season) 2024 04/11/2021, 07/06/2020, 06/15/2020 Hypertension/CHF/CAD Annual BMP Blood Test 03/23/2025 03/23/2024, 05/19/2022 Zoster Vaccines (2 of 2) 05/04/2025 03/09/2025 Falls Risk Assessment 09/26/2025 09/26/2024 , 03/23/2023, 03/23/2023 Medicare Annual Wellness Visit 09/26/2025 09/26/2024 Social Influencers of Health Screening 09/26/2025 09/26/2024 RSV Immunization Adult Patients (1 - 1-dose 75+ series) 12/11/2026 Breast Cancer Screening 01/11/2027 01/12/20 25, 12/24/2023, 12/24/2023, Additional history exists Colorectal Cancer Screening: Colonoscopy 01/15/2027 01/15/2017, 01/15/2017, 01/15/2017 Cholesterol Screening (Lipid Panel) 05/19/2027 05/19/2022 DTaP,Tdap,and Td Vaccines (4 - Td or Tdap) 06/27/2032 06/27/2022, 05/27/2012, 04/01/2005 Osteoporosis Screening (Bone Density Screening) 03/16/2035 03/16/2025, 12/31/2021 Hepatitis C Screening Completed 05/19/2022, 023 Pneumococcal Vaccine: 50+ Years Completed 03/02/2023, 09/16/2021 Depression Screening Completed 09/26/2024, 03/23/20 23 Influenza Vaccine Completed 02/01/2025, , 01/08/2023, Additional history exists HIB Vaccines Aged Out No longer eligi ble based on patient's age to complete this topic HPV Vaccines Aged Out No longer eligi ble based on patient's age to complete this topic Hepatitis A Vaccines Aged Out No long er eligible based on patient's age to complete this topic Hepatitis B Vaccines Aged Out No long er eligible based on patient's age to complete this topic IPV Vaccines Aged Out No longer eligi ble based on patient's age to complete this topic MMR Vaccines Aged Out No longer eligi ble based on patient's age to complete this topic Meningococcal ACWY Vaccine Aged Out N o longer eligible based on patient's age to complete this topic Meningococcal B Vaccine Aged Out No l onger eligible based on patient's age to complete this topic RSV Immunization Patients Under 20 months Aged Out No longer eligible based on patient's age to complete this topic Varicella Vaccines Aged Out No longer eligible based on patient's age to complete this topic Procedures Procedure Name Priority Date/Time Associated Diagnosis Comments BD BONE DENSITY DXA AXIAL SKELETON Routine 03/16/2025 1:36 PM EST Osteopenia, unspecified location Vitamin D deficiency Moderate early onset Alzheimer's dementia without behavioral disturbance, psychotic disturbance, mood disturbance, or anxiety (CMS/HCC V24, CMS/HCC V28) Primary hypertension Asymptomatic menopausal state MG MAMMO DIGITAL SCREENING W PAVAN BILAT Routine 01/11/2025 2:31 PM EDT Encounter for screening mammogram for breast cancer BASIC METABOLIC PANEL Routine 03/23/2024 3:19 PM EST Primary hypertension DEPRESSION SCREENING Routine 03/23/2023 FALLS RISK ASSESSMENT Routine 03/23/2023 HEPATITIS C SCREENING Routine 05/19/2022 LIPID PANEL Routine 05/19/2022 COLONOSCOPY Routine 01/15/2017 from Last 3 Months or Most Recently Relevant to Health Maintenance Results * BD Bone Density DXA Axial [...] (World Health Organization Fracture Risk Assessment) [facility] Department of Internal Medicine [...] alternative screening schedule based on evelin Galvin., [facility] April 24, 2011 for patients with osteopenia [...] Signed Date: 03/16/2025 14:09 ET Workstation ID: [id number] Transcribed By: Self Edit Transcribed Date: 03/16/2025 [...] (World Health Organization Fracture Risk Assessment) [facility] Department of Internal Medicine [...] alternative screening schedule based on evelin Galvin., [facility] for patients with [facility] (based on [...] Signed Date: 03/16/2025 14:09 ET Workstation ID: [id number] Transcribed By: Self Edit Transcribed Date: 03/16/2025 14:05 ET Rupali ROGER IMG DXA PROCEDURES Final Resu lt * MG Mammo Digital Screening w Pavan bilat (01/11/2025 2:31 PM EDT) Anatomical Region Laterality Modality Breast Bilateral Mammography 01/12/2025 5:15 PM EDT Impressions 01/12/2025 5:16 PM EDT No mammographic evidence of malignancy. BREAST DENSITY: B - There are scattered areas of fibroglandular density. BI-RADS CATEGORY: 1 - NEGATIVE RECOMMENDATION: Screening bilateral mammogram is recommended in 1 year. MAMMO LOCATION: [facility], [address] [place] [address], [id number], . -------- FINAL REPORT -------- Dictated By: Isa Lees Dictated Date: 01/12/2025 17:15 ET Assigned Physician: Isa Lees Reviewed and Electronically Signed By: Isa Lees Signed Date: 01/12/2025 17:16 ET Workstation ID: [id number] Transcribed By: Self Edit Transcribed Date: 01/12/2025 17:15 ET Narrative 01/12/2025 5:16 PM EDT EXAM: Screening Mammogram CLINICAL: 74 years old, Female, routine annual exam. COMPARISON: 12/24/2023 and as far back as 12/04/2020 TECHNIQUE: Bilateral MLO and CC views were obtained digitally with 3-D mammogram (digital breast tomosynthesis). Computer-aided detection was utilized in evaluation of this exam (CAD). FINDINGS: No new suspicious mass, architectural distortion, or suspicious calcifications. Procedure Note Isa Lees MD - 01/12/2025 EXAM: Screening Mammogram CLINICAL: 74 years old, Female, routine annual exam. COMPARISON: 12/24/2023 and as far back as 12/04/2020 TECHNIQUE: Bilateral MLO and CC views were obtained digitally with 3-Dmammogram (digital breast tomosynthesis). Computer-aided detection wasutilized in evaluation of this exam (CAD). FINDINGS: No new suspicious mass, architectural distortion, or suspiciouscalcifications. IMPRESSION: No mammographic evidence of malignancy. BREAST DENSITY: B - There are scattered areas of fibroglandular density. BI-RADS CATEGORY: 1 - NEGATIVE RECOMMENDATION: Screening bilateral mammogram is recommended in 1 year. MAMMO LOCATION: [facility], [address] [place] [address], [id number], . -------- FINAL REPORT -------- Dictated By: Isa Lees Dictated Date: 01/12/2025 17:15 ET Assigned Physician: Isa Lees Reviewed and Electronically Signed By: Isa Lees Signed Date: 01/12/2025 17:16 ET Workstation ID: [id number] Transcribed By: Self Edit Transcribed Date: 01/12/2025 17:15 ET us Iman Marroquin MD IMG BI PROCEDURES Final Result * (ABNORMAL) Basic metabolic panel (03/23/2024 3:19 PM EST) Sodium 144 133 - 145 mmol/L LAB CHEMISTRY METHOD 03/23/2024 6:16 PM [facility] Potassium 4.8 3.5 - 5.5 mmol/L LAB CHEMISTRY METHOD 03/23/2024 6:16 PM [facility] Chloride 111(H) 96 - 110 mmol/L LAB CHEMISTRY METHOD 03/23/2024 6:16 PM [facility] CO2 27 21 - 32 mmol/L LAB CHEMISTRY METHOD 03/23/2024 6:16 PM [facility] Anion Gap 6 3 - 11 LAB CHEMISTRY METHOD 03/23/2024 6:16 PM [facility] Glucose 113(H) 70 - 100 mg/dL LAB CHEMISTRY METHOD 03/23/2024 6:16 PM [facility] BUN 20 5 - 25 mg/dL LAB CHEMISTRY METHOD 03/23/2024 6:16 PM [facility] Creatinine 0.64 0.50 - 1.10 mg/dL LAB CHEMISTRY METHOD 03/23/2024 6:16 PM [facility] eGFR 94 >=60 mL/min/1. 73m2 LAB CHEMISTRY METHOD 03/23/2024 6:16 PM [facility] Comment:Calculation based on the Chronic Kidney Disease Epidemiology Collaboration (CKD-EPI) equation refit without adjustment for race. BUN/Creatinine Ratio 31.3 LAB CHEMISTRY METHOD 03/23/2024 6:16 PM [facility] Calcium 9.7 8.5 - 10.5 mg/dL LAB CHEMISTRY METHOD 03/23/2024 6:16 PM [facility] Blood Venous blood specimen / Unknown Venipuncture / Unknown 03/23/2024 3:19 PM EST 03/23/2024 3:19 PM EST Iman Marroquin MD LAB BLOOD ORDERABLES Final Resul t [facility] ([facility]) [facility] [address] [place] [address], * Falls Risk Assessment (03/23/2023) Pathologist [facility] Falls Risk Assessment Abstracted Historical Provider HEALTH MAINTENANCE Final Result * Depression Screening (03/23/2023) [facility] Depression Screening Abstracted [facility] Provider HEALTH MAINTENANCE Final Result * Hepatitis C Screening (05/19/2022) [facility] Hepatitis C Screening Abstracted [facility] Provider HEALTH MAINTENANCE Final Result * (ABNORMAL) Lipid panel (05/19/2022) [facility] LDL/HDL Ratio 3 0 - 4 Triglycerides 139 0 - 150 mg/dL Cholesterol 211(A) 0 - 200 mg/dL HDL 84 >=40 mg/dL LDL Cholesterol 100 0 - 100 mg/dL Blood Venous blood specimen / Unknown Result [facility] Historical Provider LAB BLOOD ORDERABLES Zena l Result * Colonoscopy (01/15/2017) Pathologist [facility] Colonoscopy No interpretation , Abstracted Anatomical Region Laterality Modality Other Historical Provider HEALTH MAINTENANCE Final Result from Last 3 Months or Most Recently Relevant to Health Maintenance Insurance MEDICARE [facility] Care Teams Mastic Worker Relationship Specialty Start Date End Date Iman Marroquin MD [address] [place] [address] PCP - General Internal Medicine 06/10/21
--- OUTSIDE RECORDS SUMMARY | 2025-03-20 22:11 | XMS_ITS | Clinical Summary ---
Author Organization [facility] Address [address] [place], [place] [id number] Phone Care Team Providers Care Professor Of Radiology Name Role Phone Yumiko Navarro MD Primary [...] file Insurance MEDICARE PART A & B [employer] SUPPLEMENT MEDICARE PART A & B [employer] SUPPLEMENT MEDICARE PART A & B [employer] SUPPLEMENT MEDICARE PART A & B [employer] SUPPLEMENT MEDICARE PART A & B [employer] SU[employer]MENT Member Subscriber Plan / [facility] Name:NatanAlyssa brooks Relation to Subscriber:Self Name:Alyssa Espinoza Payer ID:[id number] (NAIC) Type:Indemnity Address: [place] [address] MEDICARE PART A & B [employer] SUPPLEMENT MEDICARE PART A & B [employer] MED[employer] SUPPLEMENT MEDICARE PART A & B [employer] SUPPLEMENT MEDICARE PART A & B [employer] MED[employer] SUPPLEMENT Care Teams Professor Of Radiology Relationship Specialty Start Date End Date Yumiko Navarro MD [address] [address] PCP - General Internal Medicine 05/27/21 Additional Source Comments The information contained in this document represents components of the legal health record. It is not the complete legal health record.[facility]
== END 2025-03-20 16:16 | disposition home or self-care (01) ==
LOC: HO.HSM 15:47
PROVIDERS: PCP Internal Medicine; Visit Provider Registered Nurse
DX: G30.9 Alzheimer's disease, unspecified (principal); F02.80 Dementia in other diseases classified elsewhere, unspecified severity, without behavioral disturbance, psychotic disturbance, mood disturbance, and anxiety; G50.0 Trigeminal neuralgia; G47.00 Insomnia, unspecified
CPT/HCPCS: 99214

== ENCOUNTER → 2025-03-20 15:46 | Outpatient (BNVA) | payer MEDICARE, SELFPAY | PROVIDERS: PCP Internal Medicine; Visit Provider Registered Nurse | DX: G30.9 Alzheimer's disease, unspecified (principal); F02.80 Dementia in other diseases classified elsewhere, unspecified severity, without behavioral disturbance, psychotic disturbance, mood disturbance, and anxiety; G50.0 Trigeminal neuralgia; G47.00 Insomnia, unspecified | CPT/HCPCS: 99212 ==